=== PATIENT | male | born 1975 | race Caucasian/White ===

== ENCOUNTER 2018-09-10 17:23 | Inpatient (IN) | payer OTHER ==
[~2018-09-10] VITALS: Ht 195.6 cm; Wt 129.4 kg
[~2018-09-10 17:23] MED LIST: AGM875T PO; AMLO10TA4 PO; AMLO10TA82 PO; ASCO500T20 PO; CEPH500C PO; CLON0.5T60 PO; DCS100C PO; DOXY-13 PO; DOXY100C2 PO; ELTA CREAM; FLUO40CA12 PO; HCT25T PO; HCTZ12.5T PO; HYDR-2997 PO; HYDR-34 PO; HYDR1TAB PO; LAMO100T69 PO; MINE120C TP; MTP50T PO; MULT-358 PO; NFR150C PO; PNT40TEC PO; SULF1TAB35 PO; SULF1TAB38 PO; TEMA15CA54 PO; ZINC50TA5 PO; [UNRECOGNIZED DRUG - CODE] PO
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
--- OUTSIDE RECORDS SUMMARY | 2018-09-10 17:29 | XMS REPORT | Continuity of Care Document ---
Author Organization Unknown Address Unknown Allergies Active Description Code Type Severity Reaction Onset Reported/Identified Relationship to Patient Clinical Status Yes Bactrim Drug Allergy 04/24/2011 Yes Bactrim Drug Allergy N/A N/A 04/24/2011 Medications There is no data. Problems Date Dx Coded Attending Type Code Diagnosis Diagnosed By 12/01/2009 070.70 UNSPECIFIED VIRAL HEPATITIS C WITHOUT HEPATIC COMA 12/01/2009 401.9 UNSPECIFIED ESSENTIAL HYPERTENSION 12/01/2009 070.70 UNSPECIFIED VIRAL HEPATITIS C WITHOUT HEPATIC COMA 12/01/2009 401.9 UNSPECIFIED ESSENTIAL HYPERTENSION 12/01/2009 070.70 UNSPECIFIED VIRAL HEPATITIS C WITHOUT HEPATIC COMA 12/01/2009 401.9 UNSPECIFIED ESSENTIAL HYPERTENSION 12/01/2009 SADIA KNOX APRN 070.70 UNSPECIFIED VIRAL HEPATITIS C WITHOUT HEPATIC COMA 12/01/2009 SADIA KNOX APRN 401.9 UNSPECIFIED ESSENTIAL HYPERTENSION 02/26/2010 034.0 STREPTOCOCCAL SORE THROAT 02/26/2010 034.0 STREPTOCOCCAL SORE THROAT 02/26/2010 034.0 STREPTOCOCCAL SORE THROAT 02/26/2010 SADIA KNOX APRN 034.0 STREPTOCOCCAL SORE THROAT 03/07/2010 401.1 ESSENTIAL HYPERTENSION BENIGN 03/07/2010 845.00 SPRAIN/ STRAIN ANKLE 03/07/2010 401.1 ESSENTIAL HYPERTENSION BENIGN 03/07/2010 845.00 SPRAIN/ STRAIN ANKLE 03/07/2010 401.1 ESSENTIAL HYPERTENSION BENIGN 03/07/2010 845.00 SPRAIN/ STRAIN ANKLE 03/07/2010 SADIA KNOX APRN 401.1 ESSENTIAL HYPERTENSION BENIGN 03/07/2010 SADIA KNOX APRN 845.00 SPRAIN/STRAIN ANKLE 07/25/2010 607.84 IMPOTENCE OF ORGANIC ORIGIN 07/25/2010 607.84 IMPOTENCE OF ORGANIC ORIGIN 07/25/2010 607.84 IMPOTENCE OF ORGANIC ORIGIN 07/25/2010 SADIA KNOX APRN 607.84 IMPOTENCE OF ORGANIC ORIGIN 09/03/2010 296.90 MO MOOD DIS NOS 09/03/2010 296.90 MO MOOD DIS NOS 09/03/2010 296.90 MO MOOD DIS NOS 09/03/2010 SADIA KNOX APRN 296.90 MO MOOD DIS NOS 04/24/2011 338.29 CHRONIC PAIN 04/24/2011 799.21 feeling nervous 04/24/2011 338.29 CHRONIC PAIN 04/24/2011 799.21 feeling nervous 04/24/2011 338.29 CHRONIC PAIN 04/24/2011 799.21 feeling nervous 04/24/2011 SADIA KNOX APRN 338.29 CHRONIC PAIN 04/24/2011 SADIA KNOX APRN 799.21 feeling nervous 05/24/2011 780.52 insomnia 05/24/2011 945.04 ENCINAS OF THE LOWER LEG RIGHT 05/24/2011 780.52 insomnia 05/24/2011 945.04 ENCINAS OF THE LOWER LEG RIGHT 05/24/2011 780.52 insomnia 05/24/2011 945.04 ENCINAS OF THE LOWER LEG RIGHT 05/24/2011 SADIA KNOX APRN 780.52 insomnia 05/24/2011 SADIA KNOX APRN 945.04 ENCINAS OF THE LOWER LEG RIGHT 06/05/2011 296.30 MO DEPRESSIVE RECURRENT UNSPECIFIED 06/05/2011 300.01 AN PANIC DIS W/O AGORA 06/05/2011 304.80 SA POLYSUB DEP 06/05/2011 307.47 SI DYSSOMNIA NOS 06/05/2011 296.30 MO DEPRESSIVE RECURRENT UNSPECIFIED 06/05/2011 300.01 AN PANIC DIS W/O AGORA 06/05/2011 304.80 SA POLYSUB DEP 06/05/2011 307.47 SI DYSSOMNIA NOS 06/05/2011 296.30 MO DEPRESSIVE RECURRENT UNSPECIFIED 06/05/2011 300.01 AN PANIC DIS W/O AGORA 06/05/2011 304.80 SA POLYSUB DEP 06/05/2011 307.47 SI DYSSOMNIA NOS 06/05/2011 SADIA KNOX APRN 296.30 MO DEPRESSIVE RECURRENT UNSPECIFIED 06/05/2011 SADIA KNOX APRN 300.01 AN PANIC DIS W/O AGORA 06/05/2011 SADIA KNOX APRN 304.80 SA POLYSUB DEP 06/05/2011 SADIA KNOX APRN 307.47 SI DYSSOMNIA NOS 06/25/2011 786.2 cough 06/25/2011 786.2 cough 06/25/2011 786.2 cough 06/25/2011 SADIA KNOX APRN 786.2 cough 07/25/2011 709.9 DERMATOLOGY - NON-INFECTIOUS 07/25/2011 709.9 DERMATOLOGY - NON-INFECTIOUS 07/25/2011 709.9 DERMATOLOGY - NON-INFECTIOUS 07/25/2011 SADIA KNOX APRN 709.9 DERMATOLOGY - NON-INFECTIOUS 07/29/2011 V58.69 MEDICATION HIGH RISK 07/29/2011 V58.69 MEDICATION HIGH RISK 07/29/2011 V58.69 MEDICATION HIGH RISK 07/29/2011 SADIA KNOX APRN V58.69 MEDICATION HIGH RISK 08/29/2011 305.20 CANNABIS ABUSE 08/29/2011 305.70 AMPHETA ABUSE 08/29/2011 305.20 CANNABIS ABUSE 08/29/2011 305.70 AMPHETA ABUSE 08/29/2011 305.20 CANNABIS ABUSE 08/29/2011 305.70 AMPHETA ABUSE 08/29/2011 SADIA KNOX APRN 305.20 CANNABIS ABUSE 08/29/2011 SADIA KNOX APRN 305.70 AMPHETA ABUSE 09/10/2011 041.12 MRSA, METHICILLIN RESISTANT 09/10/2011 041.12 MRSA, METHICILLIN RESISTANT 09/10/2011 041.12 MRSA, METHICILLIN RESISTANT 09/10/2011 SADIA KNOX APRN 041.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 Results There is no data. Encounters ACCT No. Visit Date/Time Discharge Status Pt. Type Provider Facility Loc./Unit Complaint [id number] 06/09/2012 09:24:00 06/09/2012 23:59:59 CLS Outpatient SADIA KNOX APRN [id number] 05/26/2012 09:22:00 05/26/2012 23:59:59 CLS Outpatient [id number] 04/21/2012 09:44:00 04/21/2012 23:59:59 CLS Outpatient [id number] 04/14/2012 09:31:00 04/14/2012 23:59:59 CLS Outpatient
[2018-09-10] MEDS ORDERED: fentaNYL INJECTION 100 MCG/2 ML AMP IVP ONE ×2 (17:45→19:30)
[2018-09-10] MEDS ORDERED: VANCOMYCIN INJECTION 1,000 MG in NS (IVPB) 250 ML IV SCH (17:45)
[2018-09-10] MEDS ORDERED: PIPERACILLIN/TAZOBACTAM (BULK) 4.5 GM in NS (IVPB) 100 ML IV ONE (17:45)
[2018-09-10 18:01] LABS: BASOPHILS # (AUTO) 0.1 10^3/uL (0.0-0.1); BASOPHILS % (AUTO) 1 % (0-10); EOSINOPHILS # (AUTO) 0.3 10^3/uL (0.0-0.3); EOSINOPHILS % (AUTO) 3 % (0-10); HEMATOCRIT 49 % (40-54); HEMOGLOBIN 16.5 G/DL (13.3-17.7); LYMPHOCYTES # (AUTO) 1.8 X 10^3 (1.0-4.0); LYMPHOCYTES % (AUTO) 19 % (12-44); MEAN CORPUSCULAR HEMOGLOBIN 31 PG (25-34); MEAN CORPUSCULAR HGB CONC 34 G/DL (32-36); MEAN CORPUSCULAR VOLUME 92 FL (80-99); MEAN PLATELET VOLUME 10.3 FL (7.4-10.4); MONOCYTES # (AUTO) 0.9 X 10^3 (0.0-1.0); MONOCYTES % (AUTO) 9 % (0-12); NEUTROPHILS # (AUTO) 6.5 X 10^3 (1.8-7.8); NEUTROPHILS % (AUTO) 68 % (42-75); PLATELET COUNT 393 10^3/uL (130-400); WHITE BLOOD COUNT 9.6 10^3/uL (4.3-11.0)
[2018-09-10 18:10] LABS: INR 1.1 (0.8-1.4); PROTHROMBIN TIME PATIENT 14.2 SEC (12.2-14.7)
[2018-09-10 18:16] LABS: ALANINE AMINOTRANSFERASE 50 U/L (0-55); ALBUMIN 3.3 GM/DL (3.2-4.5); ALKALINE PHOSPHATASE 70 U/L (40-136); BILIRUBIN,TOTAL 0.4 MG/DL (0.1-1.0); BUN/CREATININE RATIO 14; CALCIUM 9.1 MG/DL (8.5-10.1); CARBON DIOXIDE 27 MMOL/L (21-32); CHLORIDE 100 MMOL/L (98-107); CREATININE SERUM 1.08 MG/DL (0.60-1.30); GFR ESTIMATED > 60; GLUCOSE 97 MG/DL (70-105); POTASSIUM 4.3 MMOL/L (3.6-5.0); SODIUM 137 MMOL/L (135-145); TOTAL PROTEIN 9.2 GM/DL (6.4-8.2)
[2018-09-10] MEDS ORDERED: ALLO100T PO (18:16)
[2018-09-10] MEDS ORDERED: CEPH-507 PO (18:16)
--- NOTE | 2018-09-10 18:58 | Diagnostic Imaging Report ---
PROCEDURE: US left lower extremity venous. TECHNIQUE: Multiple real-time grayscale images were obtained over the left lower extremity in various projections. Additional duplex Doppler and color Doppler images were also obtained. INDICATION: Left leg edema and pain There is normal venous flow within left common femoral and superficial femoral vein to the level of superficial/popliteal junction. There is occlusive thrombus within the popliteal vein. There is edema within the distal thigh with focal region of irregular fluid collection. This may represent extensive edema although developing abscess is not excluded. Consideration could be given to aspiration for assessment. IMPRESSION: Occlusive popliteal thrombus without other deep venous thrombosis identified. There is extensive edema and probable cellulitis in the distal thigh at the site of skin erythema. Underlying fluid collection may represent edema, phlegmon or developing abscess. Dictated by: Dictated on workstation # [id number]
--- NOTE | 2018-09-10 19:00 | NUR ---
This nurse to assume care of pt @ this time.
--- NOTE | 2018-09-10 19:09 | NUR ---
Dr. Lemos in room with pt @ this time.
[2018-09-10] MEDS ORDERED: LIDOCAINE PF 2% 5 ML (XYLOCAINE) VIAL ONE (19:17)
[2018-09-10] MEDS ORDERED: ENOXAPARIN 60 MG/0.6 ML (LOVENOX) SYR SC ONE (19:30)
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
--- OUTSIDE RECORDS SUMMARY | 2018-09-10 20:06 | XMS REPORT | Continuity of Care Document ---
[...] Status Pt. Type Provider Facility Loc./Unit Complaint [id number] 06/09/2012 09:24:00 06/09/2012 23:59:59 CLS Outpatient SADIA KNOX APRN [id number] 05/26/2012 09:22:00 05/26/2012 23:59:59 CLS Outpatient [id number] 04/21/2012 09:44:00 04/21/2012 23:59:59 CLS Outpatient [id number] 04/14/2012 09:31:00 04/14/2012 23:59:59 CLS Outpatient
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
[2018-09-10 20:43] VITALS: BP 130/84
--- NOTE | 2018-09-10 20:55 | NUR ---
VALERIO AGUILLON Tootie admitted to room 412-1, with an admitting diagnosis of cellulitis & abscess of left leg, on 09/10/18 from ED via , accompanied by STAFF.VALERIO AGUILLON introduced to surroundings, call light, bed controls, phone, TV, temperature control, lights, meal times, smoking policy, visitor policy, side rail policy, bathrooms and showers. Patient Rights given to patient in the handbook. VALERIO AGUILLON verbalizes understanding that [facility] is not responsible for the loss or damage to any personal effects or valuables that are kept in the patients possession during their hospitalization. THE PATIENT'S PLAN OF CARE WAS DISCUSSED WITH THE PATIENT HE AGREES WITH THE PLAN AND DENIES ANY QUESTIONS OR CONCERNS AT THIS TIME. VALERIO AGUILLON verbalizes understanding of Interdisciplinary Patient Education. Patient and/or family were informed about the Rapid Response Team and its purpose.
[2018-09-10] MEDS ORDERED: ONDANSETRON 4 MG/2 ML (SDV) Z0FRAN IV PRN (21:30)
--- NOTE | 2018-09-10 22:22 | NUR ---
2215-THIS RN, JULIA SETHI, & PT COUNTED HIS HYDROCODONE 5/325 TABS-TOTAL 10-MEDICATION PLACED IN LOCK UP IN MEDICATION ROOM PT ALSO HAS MONEY IN HIS ROOM-PT DENIES DESIRE TO LOCK IT UP OR ANY OTHER BELONGINGS-WITNESSED BY JULIA Crowley RN
--- NOTE | 2018-09-10 22:42 | NUR ---
SCD ORDER DC- CONTRAINDICATED-PT HAS CLOT IN THE LEFT LEG PT IS ALSO ALREADY ON LOVENOX
[2018-09-11 00:41] VITALS: BP 119/72
[2018-09-11] MEDS ORDERED: NS (IVPB) 100 ML ONE (00:42)
[2018-09-11] MEDS ORDERED: PIPERACILLIN/TAZO 4.5 GM VIAL (ZOSYN) IV ONE (00:42)
[2018-09-11] MEDS: PIPERACILLIN/TAZO 4.5 GM/NS 100 ML IV SCH ×6 (02:02→16:46)
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
[2018-09-11 04:25] VITALS: BP 140/80
[2018-09-11 06:27] LABS: BASOPHILS # (AUTO) 0.1 10^3/uL (0.0-0.1); BASOPHILS % (AUTO) 1 % (0-10); EOSINOPHILS # (AUTO) 0.3 10^3/uL (0.0-0.3); EOSINOPHILS % (AUTO) 4 % (0-10); HEMATOCRIT 45 % (40-54); HEMOGLOBIN 14.9 G/DL (13.3-17.7); LYMPHOCYTES # (AUTO) 2.1 X 10^3 (1.0-4.0); LYMPHOCYTES % (AUTO) 25 % (12-44); MEAN CORPUSCULAR HEMOGLOBIN 31 PG (25-34); MEAN CORPUSCULAR HGB CONC 33 G/DL (32-36); MEAN CORPUSCULAR VOLUME 92 FL (80-99); MEAN PLATELET VOLUME 10.7 FL (7.4-10.4); MONOCYTES # (AUTO) 0.9 X 10^3 (0.0-1.0); MONOCYTES % (AUTO) 11 % (0-12); NEUTROPHILS # (AUTO) 4.9 X 10^3 (1.8-7.8); NEUTROPHILS % (AUTO) 59 % (42-75); PLATELET COUNT 358 10^3/uL (130-400); WHITE BLOOD COUNT 8.3 10^3/uL (4.3-11.0)
[2018-09-11 06:44] LABS: ALANINE AMINOTRANSFERASE 37 U/L (0-55); ALBUMIN 2.8 GM/DL (3.2-4.5); ALKALINE PHOSPHATASE 62 U/L (40-136); BILIRUBIN,TOTAL 0.3 MG/DL (0.1-1.0); BUN/CREATININE RATIO 15; CALCIUM 8.7 MG/DL (8.5-10.1); CARBON DIOXIDE 22 MMOL/L (21-32); CHLORIDE 105 MMOL/L (98-107); CREATININE SERUM 0.93 MG/DL (0.60-1.30); GFR ESTIMATED > 60; GLUCOSE 88 MG/DL (70-105); POTASSIUM 3.5 MMOL/L (3.6-5.0); SODIUM 138 MMOL/L (135-145); TOTAL PROTEIN 7.3 GM/DL (6.4-8.2)
[2018-09-11] MEDS ORDERED: ENOXAPARIN 60 MG/0.6 ML (LOVENOX) SYR SC SCH (07:30)
[2018-09-11 08:00] VITALS: BP 134/94
[2018-09-11] MEDS: VANCOMYCIN INJECTION 2,250 MG in NS IV 500 ML 500 ML IV SCH ×3 (08:44→20:28)
[2018-09-11] MEDS: ENOXAPARIN 300 MG/3 ML (LOVENOX) MULTI-DOSE VIAL SQ SCH ×2 (08:45→20:21)
[2018-09-11] MEDS ORDERED: METO-333 PO (09:03)
[2018-09-11] MEDS ORDERED: PANT40TA3 PO (09:03)
[2018-09-11] MEDS ORDERED: HYDR-3812 PO (09:03)
[2018-09-11] MEDS ORDERED: ALLO300T2 PO (09:03)
[2018-09-11] MEDS ORDERED: FURO20TA4 PO (09:03)
[2018-09-11] MEDS ORDERED: LISI-552 PO (09:03)
--- NOTE | 2018-09-11 10:14 | Progress Note ---
Subjective Date Seen by a Provider: September 11, 2018 Time Seen by a Provider: 10:11 Subjective/Events-last exam No acute events overnight. Patient says that his pain has changed from a sharp stabbing pain to more sore and dull pain. He rates this as a 6 or 7 out of 10 in intensity. He feels like he has a fever although this is improved from yesterday. He reports a pus like fluid that continues to drain from the wound. He denies nausea, vomiting, diarrhea, shortness of breath, or chest palpitations. Focused Exam Lactate Level 09/10/18 17:50: Lactic Acid Level 1.58 Objective Exam Vital Signs Date Time Temp Pulse Resp B/P (MAP) Pulse Ox O2 Delivery O2 Flow Rate FiO2 09/11/18 08:00 99.4 99 18 134/94 (107) 94 Room Air 09/11/18 04:25 98.0 82 20 140/80 (100) 98 Room Air 09/11/18 00:41 98.4 104 20 119/72 (88) 93 Room Air 09/10/18 20:43 98.2 79 18 130/84 98 Room Air 09/10/18 20:43 98.2 79 18 130/84 (99) 98 Room Air 09/10/18 20:40 Room Air 09/10/18 20:25 96.9 84 18 129/95 (106) 98 Room Air 09/10/18 17:25 96.7 79 18 123/86 (98) 97 I & O 09/11/18 07:00 Intake Total 1580 ml Balance 1580 ml Capillary Refill : Less Than 3 SecondsLess Than 3 Seconds General Appearance: No Apparent Distress, WD/WN HEENT: PERRL/EOMI, Normal ENT Inspection Neck: Normal Inspection Respiratory: Chest Non Tender, Normal Breath Sounds, No Accessory Muscle Use, No Respiratory Distress Cardiovascular: Regular Rate, Rhythm Gastrointestinal: non tender, soft Extremity: Other (Left leg erythema, edema, draining a yellow serous appearing fluid) Neurologic/Psychiatric: Alert, Oriented x3, No Motor/Sensory Deficits, Normal Mood/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, 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 Tested Skin: Warm/Dry, Other (Multiple skin grafts throughout the body, area of erythema and induratio around at wound on medial aspect of distal left thigh.) Lymphatic: No Adenopathy Results Lab Laboratory Tests 09/10/18 17:50: White Blood Count 9.6, Red Blood Count 5.33, Hemoglobin 16.5, Hematocrit 49, Mean Corpuscular Volume 92, Mean Corpuscular Hemoglobin 31, Mean Corpuscular Hemoglobin Concent 34, Red Cell Distribution Width 14.0, Platelet Count 393, Mean Platelet Volume 10.3, Neutrophils (%) (Auto) 68, Lymphocytes (%) (Auto) 19 , Monocytes (%) (Auto) 9, Eosinophils (%) (Auto) 3, Basophils (%) (Auto) 1, Neutrophils # (Auto) 6.5, Lymphocytes # (Auto) 1.8, Monocytes # (Auto) 0.9, Eosinophils # (Auto) 0.3, Basophils # (Auto) 0.1, Prothrombin Time 14.2, INR Comment 1.1, Activated Partial Thromboplast Time 39H, Sodium Level 137, Potassium Level 4.3, Chloride Level 100, Carbon Dioxide Level 27, Anion Gap 10, Blood Urea Nitrogen 15, Creatinine 1.08, Estimat Glomerular Filtration Rate > 60 , BUN/Creatinine Ratio 14, Glucose Level 97, Lactic Acid Level 1.58, Calcium Level 9.1, Corrected Calcium 9.7, Total Bilirubin 0.4, Aspartate Amino Transf ( AST/SGOT) 70H, Alanine Aminotransferase (ALT/SGPT) 50, Alkaline Phosphatase 70, Total Protein 9.2H, Albumin 3.3 09/11/18 05:30: White Blood Count 8.3, Red Blood Count 4.88, Hemoglobin 14.9, Hematocrit 45, Mean Corpuscular Volume 92, Mean Corpuscular Hemoglobin 31, Mean Corpuscular Hemoglobin Concent 33, Red Cell Distribution Width 14.0, Platelet Count 358, Mean Platelet Volume 10.7H, Neutrophils (%) (Auto) 59, Lymphocytes (%) (Auto) 25 , Monocytes (%) (Auto) 11, Eosinophils (%) (Auto) 4, Basophils (%) (Auto) 1, Neutrophils # (Auto) 4.9, Lymphocytes # (Auto) 2.1, Monocytes # (Auto) 0.9, Eosinophils # (Auto) 0.3, Basophils # (Auto) 0.1, Sodium Level 138, Potassium Level 3.5L, Chloride Level 105, Carbon Dioxide Level 22, Anion Gap 11, Blood Urea Nitrogen 14, Creatinine 0.93, Estimat Glomerular Filtration Rate > 60, BUN/ Creatinine Ratio 15, Glucose Level 88, Calcium Level 8.7, Corrected Calcium 9.7 , Total Bilirubin 0.3, Aspartate Amino Transf (AST/SGOT) 45H, Alanine Aminotransferase (ALT/SGPT) 37, Alkaline Phosphatase 62, Total Protein 7.3, Albumin 2.8L Assessment/Plan Assessment/Plan Assessment/Plan Left leg medial above the knee cellulitis/ abscess history of skin grafts, Hep C s/p splenectomy, DVT Left popliteal s/p debridement and incision and drainage Pack and irrigate daily Lovenox for DVT Vancomycin and Zosyn for abx await cultures Pain management Continue to watch closely for increasing signs of infection May need to go to the OR for further debridement if worsens. Clinical Quality Measures DVT/VTE Risk/Contraindication: Risk Factor Score Per Nursin RFS Level Per Nursing on Admit: 4+=Very High KRISTAN LOPEZ MEDICAL STUDENT September 11, 2018 10:14 JULISSA JEFFREY DO September 11, 2018 17:05
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
--- NOTE | 2018-09-11 10:46 | NUR ---
TRIED TO SPEAK WITH THE PATIENT ABOUT HIS MEDICATIONS HOWEVER HE WOULD NOT WAKE UP TO ENGAGE IN CONVERSATION. ALL HE DID SAY WAS HE USES [facility] AND CAN NOT REMEMBER ALL OF WHAT HE TAKES. I UPDATED THE MED REC WITH WHAT HAS BEEN FILLED RECENTLY ACCORDING TO [facility]. [facility] FILLED: 09-07-18 KEFLEX 500MG Q12H X 5 DAYS 09-07-18 LISINOPRIL 20MG BID 09-07-18 HYDROCODONE 5-325MG #30 FOR 10 DAY SUPPLY 08-26-18 LASIX 20MG DAILY PRN 07-30-18 METOPROLOL TARTRATE 25MG BID #60 07-30-18 LISINOPRIL HCTZ 20-25 DAILY #30 07-30-18 ALLOPURINOL 300MG DAILY #30 07-30-18 PROTONIX 40MG DAILY #30 I HAVE LEFT TWO MESSAGES WITH [facility] OFFICE TO CLARIFY THE LISINOPRIL ORDERS. THE PATIENT HAS FILLED THE COMBO LISINOPRIL HCTZ AND THE PLAIN LISINOPRIL IN THE PAST SO IT IS UNCLEAR WHICH IS THE CURRENT ACTIVE ORDER. FOR NOW I HAVE NOT INCLUDED THE LISINOPRIL HCTZ BUT WILL UPDATE IF NEEDED AFTER THE OFFICE CALLS ME BACK TO CLARIFY. Addendum: 09/11/18 at 1337 by EMMANUELLE MANLEY [facility] NURSE FROM [facility] CALLED BACK AT THIS TIME AND VERIFIED THE PATIENTS FUROSEMIDE WAS DISCONTINUED AT HIS LAST VISIT ON 09-07-18. AT THAT TIME THEY INCREASED THE LISINOPRIL 20MG TO BID AND HE IS TO CONTINUE TAKING THE LISINOPRIL HCTZ DAILY WELL. I UPDATED THE MED REC WITH THESE CHANGES.
[2018-09-11 12:00] VITALS: BP 134/85
[2018-09-11] MEDS ORDERED: LISI1TAB10 PO (13:35)
[2018-09-11 16:40] VITALS: BP 123/78
[2018-09-11 19:35] VITALS: BP 123/72
--- NOTE | 2018-09-11 20:19 | NUR ---
This RN at bedside to flush pt's IV after Zosyn administration is finished. Pt grimaced et reported that IV site to right wrist was sore. Moderate swelling to right wrist when compared to contralateral wrist. This RN informed pt that IV was most likely infiltrated et pt would need another IV in order to receive any additional IV medications. Pt refused to allow this RN to start additional IV at this time, after education by RN of importance of IV site to receive medications, especially analgesia et antibiotics. Will continue to monitor.
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
--- NOTE | 2018-09-11 20:34 | NUR ---
Pt extremely obstinate et defiant, refusing to allow this RN to change dressing to left leg. Gauze dressing is soaked through with moderate pink drainage noted. This RN requested to change dressing to pt. Pt rolled onto back et said "you're not asking me to change it, you're telling me you're going to. Just change it!" This RN explained to pt that approval was being granted to change dressing due to pt refusing care up to that point. Pt continued to argue with RN, stating that he just wanted to be left alone. Will continue to monitor.
--- NOTE | 2018-09-11 21:12 | NUR ---
Dressing continues to saturate through itself et part of pt's bed linens. Pt continuing to refuse to allow RN to change dressing at this time. Visitors at bedside. Will continue to monitor.
[2018-09-11] MEDS: HYDROcodone/APAP 5 MG/325 MG (LORTAB) TAB PO PRN (22:00)
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
[2018-09-12 00:10] VITALS: BP 132/70
[2018-09-12] MEDS: PIPERACILLIN/TAZO 4.5 GM/NS 100 ML IV SCH ×6 (00:30→15:31)
[2018-09-12 04:00] VITALS: BP 136/86
[2018-09-12] MEDS ORDERED: TROUGH ORDER-PHARMACY XX NR (06:00)
[2018-09-12 08:00] VITALS: BP 150/90
[2018-09-12] MEDS: HYDROcodone/APAP 5 MG/325 MG (LORTAB) TAB PO PRN (08:55)
[2018-09-12] MEDS: VANCOMYCIN INJECTION 2,250 MG in NS IV 500 ML 500 ML IV SCH ×2 (09:17→20:41)
[2018-09-12] MEDS: ENOXAPARIN 300 MG/3 ML (LOVENOX) MULTI-DOSE VIAL SQ SCH ×2 (09:17→20:51)
[2018-09-12] MEDS: fentaNYL INJECTION 100 MCG/2 ML AMP IV PRN ×3 (09:18→20:58)
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
--- NOTE | 2018-09-12 10:53 | Progress Note (SOAP) ---
Subjective Date Seen by a Provider: September 12, 2018 Time Seen by a Provider: 09:40 Subjective/Events-last exam Patient seen with Dr. Wolfe. Patient reports still having drainage from left medial leg wound. Still reports pain. Tolerating diet. No fever/chills. Focused Exam Lactate Level 09/10/18 17:50: Lactic Acid Level 1.58 Objective Exam Vital Signs Date Time Temp Pulse Resp B/P (MAP) Pulse Ox O2 Delivery O2 Flow Rate FiO2 09/12/18 08:00 99.0 90 20 150/90 (110) 95 Room Air 09/12/18 08:00 Room Air 09/12/18 04:00 97.9 95 20 136/86 (103) 95 Room Air 09/12/18 00:10 99.0 99 20 132/70 (90) 94 Room Air 09/11/18 20:00 Room Air 09/11/18 19:35 98.6 98 18 123/72 (89) 95 Room Air 09/11/18 16:40 97.1 94 20 123/78 (93) 96 Room Air 09/11/18 12:00 98.3 90 18 134/85 (101) 93 Room Air I & O 09/12/18 07:00 Intake Total 2760 ml Balance 2760 ml Capillary Refill : Less Than 3 SecondsLess Than 3 Seconds General Appearance: No Apparent Distress, WD/WN Neck: Full Range of Motion, Normal Inspection, Non Tender, Supple Respiratory: Lungs Clear, No Accessory Muscle Use, No Respiratory Distress Cardiovascular: Regular Rate, Rhythm, No Edema Gastrointestinal: normal bowel sounds, non tender, soft Extremity: Normal Capillary Refill, No Pedal Edema Neurologic/Psychiatric: Alert, Oriented x3 Skin: Other (Multiple skin graft site throughout body. Left medical leg wound has yellow serous drainage. There is some mild erythema surrounding wound. Tender to palpation.) Results Lab Microbiology 09/10/18 Blood Culture - Preliminary, Resulted No growth 09/10/18 Gram Stain - Final, Resulted 09/10/18 Wound Culture - Preliminary, Resulted Staphylococcus aureus Assessment/Plan Assessment/Plan Assess & Plan/Chief Complaint A 42 year old male with Left leg medial above the knee cellulitis/ abscess history of skin grafts, Hep C s/p splenectomy, DVT Left popliteal s/p debridement and incision and drainage Continue with IV abx, pain and nausea meds. Pack and irrigate daily Lovenox for DVT Continue to monitor for increasing signs of infection May need to go to the OR for further debridement if worsens. Clinical Quality Measures DVT/VTE Risk/Contraindication: Risk Factor Score Per Nursin RFS Level Per Nursing on Admit: 4+=Very High [address] SPRINK[employer]ER September 12, 2018 10:53
[2018-09-12] MEDS ORDERED: HYDROcodone/APAP 5 MG/325 MG (LORTAB) TAB PO PRN (11:45)
--- NOTE | 2018-09-12 13:30 | NUR ---
Patient off floor at this time, with family for a walk.
--- NOTE | 2018-09-12 14:14 | NUR ---
Patient back on floor and in room at this time.
[2018-09-12 16:59] VITALS: BP 177/94
[2018-09-12] MEDS: NS IV 500 ML 500 ML IV SCH (17:05)
[2018-09-12] MEDS: meTOprolol TARTRATE 25 MG (LOPRESSOR) TABLET PO SCH (20:51)
[2018-09-12] MEDS: lisINopril 20 MG (PRINIVIL) TABLET PO SCH (20:51)
[2018-09-12 23:45] VITALS: BP 160/80
[2018-09-13] MEDS: PIPERACILLIN/TAZO 4.5 GM/NS 100 ML IV SCH ×6 (00:43→16:15)
[2018-09-13] MEDS: VANCOMYCIN INJECTION 2,250 MG in NS IV 500 ML 500 ML IV SCH ×2 (06:11→20:34)
[2018-09-13] MEDS: fentaNYL INJECTION 100 MCG/2 ML AMP IV PRN ×4 (06:16→23:42)
[2018-09-13 08:00] VITALS: BP 141/82
[2018-09-13] MEDS: NS IV 500 ML 500 ML IV SCH (08:52)
[2018-09-13] MEDS: ENOXAPARIN 300 MG/3 ML (LOVENOX) MULTI-DOSE VIAL SQ SCH ×2 (08:52→20:34)
[2018-09-13] MEDS: meTOprolol TARTRATE 25 MG (LOPRESSOR) TABLET PO SCH ×2 (08:53→20:34)
[2018-09-13] MEDS: ALLOPURINOL 300 MG (ZYLOPRIM) TAB PO SCH (08:53)
[2018-09-13] MEDS: lisINopril 20 MG (PRINIVIL) TABLET PO SCH ×3 (08:53→20:34)
[2018-09-13] MEDS: PANTOPRAZOLE 40 MG (PROTONIX) TAB PO SCH (08:53)
[2018-09-13] MEDS: HYDROCHLOROTHIAZIDE 25 MG (HCTZ) TAB PO SCH (08:53)
--- NOTE | 2018-09-13 09:49 | Progress Note (SOAP) ---
Subjective Date Seen by a Provider: September 13, 2018 Time Seen by a Provider: 09:20 Subjective/Events-last exam Patient seen with Dr. Wolfe. Patient lying in bed asleep. Denies any issues except for left medical leg pain. Tolerating diet. Focused Exam Lactate Level 09/10/18 17:50: Lactic Acid Level 1.58 Objective Exam Vital Signs Date Time Temp Pulse Resp B/P (MAP) Pulse Ox O2 Delivery O2 Flow Rate FiO2 09/13/18 08:00 96.9 79 20 141/82 (101) 94 Room Air 09/12/18 23:45 98.7 87 20 160/80 (106) 97 Room Air 09/12/18 20:00 Room Air 09/12/18 16:59 98.9 87 20 177/94 (121) 96 Room Air I & O 09/13/18 06:59 Intake Total 5492.5 ml Balance 5492.5 ml Capillary Refill : Less Than 3 SecondsLess Than 3 Seconds General Appearance: No Apparent Distress, WD/WN Neck: Full Range of Motion, Normal Inspection, Non Tender, Supple Respiratory: Lungs Clear, No Accessory Muscle Use, No Respiratory Distress Cardiovascular: Regular Rate, Rhythm, No Edema Gastrointestinal: normal bowel sounds, non tender, soft Extremity: Normal Capillary Refill, Normal Range of Motion, Other (Left medical leg wound with surrounding erythema. Serous drainage noted from wound. Painful to palpation.) Neurologic/Psychiatric: Alert, Oriented x3 Skin: Normal Color, Warm/Dry, Other (Multiple skin grafts over body and extremities.) Results Lab Microbiology 09/10/18 Blood Culture - Preliminary, Resulted No growth 09/10/18 Gram Stain - Final, Resulted 09/10/18 Wound Culture - Preliminary, Resulted Staphylococcus aureus Assessment/Plan Assessment/Plan Assess & Plan/Chief Complaint A 42 year old male with Left leg medial above the knee cellulitis/ abscess history of skin grafts, Hep C s/p splenectomy, DVT Left popliteal s/p debridement and incision and drainage Continue with IV abx, pain and nausea meds. Pack and irrigate daily Lovenox for DVT Continue to monitor for increasing signs of infection May need to go to the OR for further debridement if worsens. Clinical Quality Measures DVT/VTE Risk/Contraindication: Risk Factor Score Per Nursin RFS Level Per Nursing on Admit: 4+=Very High HUMBERTO LEVINE [employer] September 13, 2018 09:49
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
[2018-09-13 15:47] VITALS: BP 132/71
[2018-09-14] VITALS: BP 160/94
--- NOTE | 2018-09-14 | NUR ---
Pt's family at bedside. This RN at bedside to check status of pt's antibiotics. This RN approached IV pump to see that it had been altered et silenced by female visitor sitting closest to it. This RN provided education to pt et family member that only RN were allowed to touch or program pumps. Pt's IV to left hand attempted to be flushed; pt c/o of pain et minimal swelling to hand et wrist area. Pt had KVO NS at 30 ml/hr running when pump was programmed correctly. IV site lost. This RN attempted 2x to restart IV to pt's right forearm without success. Roll Scale Man Shayna contacted to restart IV. Will continue to monitor.
[2018-09-14] MEDS: NS IV 500 ML 500 ML IV SCH ×2 (01:17→08:04)
[2018-09-14] MEDS: PIPERACILLIN/TAZO 4.5 GM/NS 100 ML IV SCH ×4 (01:18→08:04)
[2018-09-14] MEDS: fentaNYL INJECTION 100 MCG/2 ML AMP IV PRN ×2 (02:50→08:11)
[2018-09-14] MEDS ORDERED: TROUGH ORDER-PHARMACY XX NR (06:00)
[2018-09-14 06:32] LABS: BUN/CREATININE RATIO 11; CALCIUM 8.4 MG/DL (8.5-10.1); CARBON DIOXIDE 18 MMOL/L (21-32); CHLORIDE 109 MMOL/L (98-107); CREATININE SERUM 1.07 MG/DL (0.60-1.30); GFR ESTIMATED > 60; GLUCOSE 168 MG/DL (70-105); POTASSIUM 4.1 MMOL/L (3.6-5.0); SODIUM 140 MMOL/L (135-145)
[2018-09-14 06:48] LABS: VANCOMYCIN,TROUGH 25.5 UG/ML (10.0-20.0)
[2018-09-14] MEDS: VANCOMYCIN INJECTION 2,250 MG in NS IV 500 ML 500 ML IV SCH (06:57)
[2018-09-14 07:58] VITALS: BP 160/84
[2018-09-14] MEDS: HYDROCHLOROTHIAZIDE 25 MG (HCTZ) TAB PO SCH (08:10)
[2018-09-14] MEDS: ALLOPURINOL 300 MG (ZYLOPRIM) TAB PO SCH (08:10)
[2018-09-14] MEDS: ENOXAPARIN 300 MG/3 ML (LOVENOX) MULTI-DOSE VIAL SQ SCH (08:10)
[2018-09-14] MEDS: lisINopril 20 MG (PRINIVIL) TABLET PO SCH ×2 (08:10→09:20)
[2018-09-14] MEDS: meTOprolol TARTRATE 25 MG (LOPRESSOR) TABLET PO SCH (08:10)
[2018-09-14] MEDS: PANTOPRAZOLE 40 MG (PROTONIX) TAB PO SCH (08:10)
--- NOTE | 2018-09-14 09:29 | Progress Note ---
Subjective Date Seen by a Provider: September 14, 2018 Time Seen by a Provider: 08:15 Subjective/Events-last exam Patient seen and examined at bedside this morning with no acute events overnight. Only complaint at this time is that he has had to have his peripheral IV changed a couple times. He still endorses pain at the wound site, however it has improved each day since admission. He denies subjective fever, GONZALES , CP, SOB, abd pain, N/V/D, and chills. Objective Exam Vital Signs Date Time Temp Pulse Resp B/P (MAP) Pulse Ox O2 Delivery O2 Flow Rate FiO2 09/14/18 08:00 94 Room Air 09/14/18 07:58 98.9 84 20 160/84 (109) 92 Room Air 09/14/18 00:00 98.6 86 20 160/94 (116) 97 Room Air 09/13/18 20:00 Room Air 09/13/18 15:47 98.4 71 24 132/71 (91) 97 Room Air I & O 09/14/18 07:00 Intake Total 2902 ml Balance 2902 ml Capillary Refill : Less Than 3 SecondsLess Than 3 Seconds General Appearance: No Apparent Distress, WD/WN HEENT: PERRL/EOMI, Normal ENT Inspection Neck: Full Range of Motion, Normal Inspection, Non Tender, Supple Respiratory: Lungs Clear, No Accessory Muscle Use, No Respiratory Distress Cardiovascular: Regular Rate, Rhythm, No Edema Gastrointestinal: normal bowel sounds, non tender, soft Extremity: Normal Capillary Refill, No Pedal Edema Neurologic/Psychiatric: Alert, Oriented x3 Skin: Other (Multiple skin graft site throughout body. Left lower leg wound has yellow serous drainage. There is some mild erythema surrounding wound. Tender to palpation. ) Lymphatic: No Adenopathy Results Lab Laboratory Tests 09/14/18 06:00: Sodium Level 140, Potassium Level 4.1, Chloride Level 109H, Carbon Dioxide Level 18L, Anion Gap 13, Blood Urea Nitrogen 12, Creatinine 1.07, Estimat Glomerular Filtration Rate > 60, BUN/Creatinine Ratio 11, Glucose Level 168H, Calcium Level 8.4L, Vancomycin Level Trough 25.5*H Microbiology 09/10/18 Blood Culture - Preliminary, Resulted No growth 09/10/18 Gram Stain - Final, Complete 09/10/18 Wound Culture - Final, Complete Staphylococcus aureus Assessment/Plan Assessment/Plan Assessment/Plan Left Lower Extremity Cellulitis/Abscess S/P Debridement and I&D Hx of Skin grafts, Hep C S/P Splenectomy, DVT Left Popliteal - Previous packing and dressing changed today, and wound was irrigated - Wound Culture positive for S. Aureus that is sensitive to TMP-SMX, Vancomycin, Rifampin, Minocycline and Linezolid; Patient is allergic to Sulfa, would continue treatment with Vancomycin - Convert to oral antibiotics - Continue with Pain and Nausea Meds - Continue Lovenox for DVT - Daily irrigation and packing with Iodaform gauze. Clinical Quality Measures DVT/VTE Risk/Contraindication: Risk Factor Score Per Nursin RFS Level Per Nursing on Admit: 4+=Very High Other: see interventions for details. Supervisory-Addendum Brief Supervisory Addendum Participated in pt care: history, MDM, physical Personally performed: exam, history, MDM, supervision of care Care discussed with: other (seen and examined with Dr. Mikaela Hernandez) Results interpretation: agree with documentation EDEL HERNANDEZ RESIDENT September 14, 2018 09:29 JULISSA JEFFREY DO September 14, 2018 16:51
[2018-09-14] MEDS ORDERED: APIX5TAB PO (11:25)
--- NOTE | 2018-09-14 11:31 | Discharge Inst-Simple/Standard ---
Discharge Inst-Standard Patient Instructions/Follow Up Plan of Care/Instructions/FU: Change dressings daily as while in hospital. You will need iodoform gauze, 4 x 4's, and nonallergenic tape. Arrangements have been made for Zyvox, which is an antibiotic for MRSA, and Eliquis which is a blood thinner. The Zyvox is a 10 day prescription. A decision will be made next week when you have your [facility] appointment as to that completing your treatment or requiring an additional length of treatment. The Eliquis will need to be used for 3-6 months and your provider will need to determine that length of treatment. Activity as Tolerated: Yes Goal: Resolution of abscess. Discharge Diet: No Restrictions Return to The Hospital For: Increasing redness and upward streaking about the open wound. Planned Outpatient Orders/Ref. Pneu Vac Indicated: Yes ALEX FARNSWORTH MD September 14, 2018 11:31
[2018-09-14] MEDS ORDERED: LINE600T5 PO (11:35)
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
--- NOTE | 2018-09-14 11:44 | NUR ---
Provided eliquis education to the patient, focused on how to take based on DVT dosing (2 bid x 7 days, then 1 bid) and adverse events including bleeding. provided the eliquis savings card to nurse (Adilene) to place in discharge paperwork. also set up linezolid 600mg po bid x 10 days with 340b savings plan, estimated michael is $25.20. per patient he can afford that.
[2018-09-14 12:50] VITALS: BP 160/84
--- NOTE | 2018-09-14 12:50 | NUR ---
Discharge instructions given to patient at this time, patient verbalized understanding. IV removed, catheter tip intact. PCT assisted patient to main entrance to vehicle.
[2018-09-15] MEDS ORDERED: TROUGH ORDER-PHARMACY XX NR (08:00)
[2018-09-15] MEDS ORDERED: VANCOMYCIN 1,750 MG/NS 500 ML IVPB IV SCH ×2 (09:00)
== END 2018-09-14 12:50 | disposition home or self-care (01) | DRG 603 ==
LOC: EDUNIT# 17:23 → ER 17:24 → 4TH 18:30
PROVIDERS: ADMIT Internal Medicine; ATTEND Internal Medicine
PROC: 0HBLXZZ Excision of Left Lower Leg Skin, External Approach (ICD-10-PCS; principal; 2018-09-10)
DX: L03.116 Cellulitis of left lower limb (principal); I82.432 Acute embolism and thrombosis of left popliteal vein; S70.312D Abrasion, left thigh, subsequent encounter; F17.210 Nicotine dependence, cigarettes, uncomplicated; I10 Essential (primary) hypertension; B19.20 Unspecified viral hepatitis C without hepatic coma; F15.10 Other stimulant abuse, uncomplicated; B95.62 Methicillin resistant Staphylococcus aureus infection as the cause of diseases classified elsewhere; V29.9XXD Motorcycle rider (driver) (passenger) injured in unspecified traffic accident, subsequent encounter; Z94.5 Skin transplant status
CPT/HCPCS: 36415; 80048; 80053; 80202; 83605; 85025; 85610; 85730; 87040; 87070; 87077; 87186; 87205; 96365; 96367; 96372; 96375; 96376

== ENCOUNTER 2020-01-11 06:45 | Emergency (ER) | payer OTHER ==
[~2020-01-11] VITALS: Ht 193 cm; Wt 130.0 kg
[~2020-01-11 06:45] MED LIST changes: +ACHD5005 PO; +ALLO100T PO; +ALLO300T2 PO; +APIX5TAB PO; +CEPH-507 PO; +FURO20TA4 PO; +LINE600T12 PO; +LISI-552 PO; +LISI1TAB26 PO; +METO-333 PO; +PANT40TA3 PO
[2020-01-11] MEDS ORDERED: ASPIRIN 81 MG CHEW (CHILDREN'S ASA) PO ONE (07:15)
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
[2020-01-11] MEDS: NITROGLYCERIN 0.4 MG SL TABS BTL 25'S SL PRN ×2 (07:35→08:41)
[2020-01-11 07:38] LABS: BASOPHILS # (AUTO) 0.2 10^3/uL (0.0-0.1); BASOPHILS % (AUTO) 2 % (0-10); EOSINOPHILS # (AUTO) 0.3 10^3/uL (0.0-0.3); EOSINOPHILS % (AUTO) 3 % (0-10); HEMATOCRIT 44 % (40-54); HEMOGLOBIN 15.5 G/DL (13.3-17.7); LYMPHOCYTES # (AUTO) 2.8 X 10^3 (1.0-4.0); LYMPHOCYTES % (AUTO) 32 % (12-44); MEAN CORPUSCULAR HEMOGLOBIN 31 PG (25-34); MEAN CORPUSCULAR HGB CONC 35 G/DL (32-36); MEAN CORPUSCULAR VOLUME 88 FL (80-99); MEAN PLATELET VOLUME 10.7 FL (7.4-10.4); MONOCYTES # (AUTO) 1.2 X 10^3 (0.0-1.0); MONOCYTES % (AUTO) 14 % (0-12); NEUTROPHILS # (AUTO) 4.4 X 10^3 (1.8-7.8); NEUTROPHILS % (AUTO) 49 % (42-75); PLATELET COUNT 358 10^3/uL (130-400); WHITE BLOOD COUNT 8.8 10^3/uL (4.3-11.0)
[2020-01-11 07:50] LABS: ALBUMIN 3.6 GM/DL (3.2-4.5); CHLORIDE 107 MMOL/L (98-107); POTASSIUM 3.5 MMOL/L (3.6-5.0); SODIUM 139 MMOL/L (135-145)
[2020-01-11 07:51] LABS: CALCIUM 8.4 MG/DL (8.5-10.1)
[2020-01-11 07:52] LABS: GLUCOSE 94 MG/DL (70-105); TOTAL PROTEIN 7.6 GM/DL (6.4-8.2)
[2020-01-11 07:53] LABS: CARBON DIOXIDE 24 MMOL/L (21-32)
[2020-01-11 07:54] LABS: BILIRUBIN,TOTAL 0.9 MG/DL (0.1-1.0)
[2020-01-11 07:56] LABS: ALKALINE PHOSPHATASE 56 U/L (40-136); GFR ESTIMATED > 60
[2020-01-11 07:57] LABS: BUN/CREATININE RATIO 17
[2020-01-11 07:59] LABS: ALANINE AMINOTRANSFERASE 26 U/L (0-55); MAGNESIUM 1.9 MG/DL (1.6-2.4)
[2020-01-11 08:00] LABS: LIPASE 28 U/L (8-78)
[2020-01-11 08:01] LABS: INR 1.1 (0.8-1.4); PROTHROMBIN TIME PATIENT 15.1 SEC (12.2-14.7)
--- NOTE | 2020-01-11 08:04 | Diagnostic Imaging Report ---
INDICATION: Chest pain COMPARISON: 03/13/11 FINDINGS: Single view of the chest demonstrates stable cardiac enlargement. The lungs are clear. There is no pneumothorax, effusion or focal infiltrate. Osseous structures are stable. IMPRESSION: Stable cardiac enlargement without pulmonary edema or acute infiltrate. Dictated by: Dictated on workstation # [id number]
[2020-01-11] MEDS ORDERED: NS IV 1000 ML 1,000 ML IV SCH (09:04)
[2020-01-11] MEDS ORDERED: NS 100 ML (IVPB) BAG IV ONE (09:15)
[2020-01-11] MEDS ORDERED: HOLD METFORMIN - RECEIVED CONTRAST 20 ML VIAL IV SCH (09:15)
[2020-01-11] MEDS ORDERED: ACETAMINOPHEN 500 MG TAB (TYLENOL) PO ONE (09:15)
[2020-01-11] MEDS ORDERED: IOHEXOL 350 MG/ML 100 ML (OMNIPAQUE 350) VIAL IV ONE (09:15)
--- NOTE | 2020-01-11 09:55 | Diagnostic Imaging Report ---
PROCEDURE: CT angiography of the chest with contrast. TECHNIQUE: Multiple contiguous axial images were obtained through the chest after uneventful bolus administration of intravenous contrast. 3D reconstructed CTA MIP acquisitions were also performed. Auto Exposure Controls were utilized during the CT exam to meet ALARA standards for radiation dose reduction. INDICATION: There is no acute pulmonary embolus in the 1st subsegmental division of the pulmonary arteries. The thoracic aorta is normal in course and caliber. The heart size is within normal limits. There is no large pericardial effusion. Several mildly prominent right hilar lymph nodes are identified. The largest of these measures 2.2 x 1.2 cm. No abnormal mediastinal or axillary adenopathy is seen. Evaluation of the lung morgan is mildly degraded by motion artifact but there is no focal consolidation, large effusion, or pneumothorax on either side. A juxtapleural micronodule is identified in the superior margins of the lateral segment of the right middle lobe adjacent to the minor fissure. It measures 4 to 5 mm in diameter (image 77, series 3). A 9 x 4 mm micronodule is also noted associated with the minor fissure on the left (image 73, series 3). The osseous structures show no acute abnormalities. No lytic or blastic bony lesions are seen. The included portions of the upper abdomen show multiple large gallstones. The patient is status post previous splenectomy. Several small splenules are noted in the left upper abdominal quadrant. IMPRESSION: 1. No acute pulmonary embolus in the 1st subsegmental division of the pulmonary arteries. 2. Several slightly prominent right hilar lymph nodes of uncertain significance or etiology. 3. Bilateral pulmonary micronodules. A 6 month followup is recommended to ensure stability. 4. Cholelithiasis. Dictated by: Dictated on workstation # [id number]
[2020-01-11 09:59] LABS: AMPHETAMINE SCREEN, URINE NEGATIVE (NEGATIVE); BARBITURATE SCREEN URINE NEGATIVE (NEGATIVE); BENZODIAZEPINES SCREEN URINE NEGATIVE (NEGATIVE); CANNABINOID SCREEN, URINE NEGATIVE (NEGATIVE); COCAINE SCREEN URINE NEGATIVE (NEGATIVE); METHADONE STAT NEGATIVE (NEGATIVE); METHAMPHETAMINE SCREEN URINE S NEGATIVE (NEGATIVE); OPIATE SCREEN URINE NEGATIVE (NEGATIVE); OXYCODONE STAT NEGATIVE (NEGATIVE); PROPOXYPHENE STAT NEGATIVE (NEGATIVE); TRICYCLIC ANTIDEPRESSANTS SCRE NEGATIVE (NEGATIVE)
[2020-01-11] MEDS ORDERED: LISI10TA2 PO (10:44)
[2020-01-11] MEDS ORDERED: CALC500T64 PO (10:44)
[2020-01-11] MEDS ORDERED: ACET-2267 PO (10:44)
[2020-01-11] MEDS ORDERED: ASPI-999 PO (10:44)
[2020-01-11 10:52] VITALS: BP 145/93
== END 2020-01-11 10:53 | disposition home or self-care (01) ==
LOC: EDUNIT# 06:45 → ER 06:47
DX: R07.9 Chest pain, unspecified (principal); R91.8 Other nonspecific abnormal finding of lung field; I10 Essential (primary) hypertension; F17.210 Nicotine dependence, cigarettes, uncomplicated; Z80.43 Family history of malignant neoplasm of testis; Z88.2 Allergy status to sulfonamides; Z79.82 Long term (current) use of aspirin; Z79.01 Long term (current) use of anticoagulants
CPT/HCPCS: 36415; 71045; 71275; 80053; 80306; 83690; 83735; 83874; 83880; 84484; 85025; 85379; 85610; 85730; 93005; 93041

== ENCOUNTER 2020-02-20 07:17 | Observation (INO) | payer OTHER ==
[~2020-02-20] VITALS: Ht 195.6 cm; Wt 132.0 kg
[~2020-02-20 07:17] MED LIST changes: +ACET-2267 PO; +ASPI-999 PO; +CALC500T64 PO; +LISI10TA2 PO; -PANT40TA3 PO; +PANT40TA52 PO
[2020-02-20] MEDS ORDERED: LACTATED RINGERS 1,000 ML IV ONE (07:44)
[2020-02-20] MEDS ORDERED: LIDOCAINE 2% VISCOUS 15 ML UDC PO ONE (07:45)
[2020-02-20] MEDS ORDERED: PANTOPRAZOLE 40 MG (PROTONIX) VIAL IV ONE (07:45)
[2020-02-20] MEDS ORDERED: ANTACID SUSP 30 ML UDC (MYLANTA) PO ONE (07:45)
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
[2020-02-20 08:08] LABS: BASOPHILS # (AUTO) 0.2 10^3/uL (0.0-0.1); BASOPHILS % (AUTO) 1 % (0-10); EOSINOPHILS # (AUTO) 0.3 10^3/uL (0.0-0.3); EOSINOPHILS % (AUTO) 3 % (0-10); HEMATOCRIT 46 % (40-54); HEMOGLOBIN 16.3 g/dL (13.3-17.7); LYMPHOCYTES # (AUTO) 3.2 10^3/uL (1.0-4.0); LYMPHOCYTES % (AUTO) 27 % (12-44); MEAN CORPUSCULAR HEMOGLOBIN 31 pg (25-34); MEAN CORPUSCULAR HGB CONC 36 g/dL (32-36); MEAN CORPUSCULAR VOLUME 88 fL (80-99); MEAN PLATELET VOLUME 11.9 fL (9.0-12.2); MONOCYTES # (AUTO) 1.5 10^3/uL (0.0-1.0); MONOCYTES % (AUTO) 12 % (0-12); NEUTROPHILS % (AUTO) 57 % (42-75); PLATELET COUNT 251 10^3/uL (130-400); WHITE BLOOD COUNT 12.2 10^3/uL (4.3-11.0)
[2020-02-20 08:10] LABS: ALBUMIN 3.9 GM/DL (3.2-4.5); CHLORIDE 106 MMOL/L (98-107)
[2020-02-20 08:11] LABS: POTASSIUM 3.5 MMOL/L (3.6-5.0); SODIUM 140 MMOL/L (135-145)
[2020-02-20 08:12] LABS: CALCIUM 8.5 MG/DL (8.5-10.1)
[2020-02-20 08:13] LABS: GLUCOSE 102 MG/DL (70-105); TOTAL PROTEIN 7.6 GM/DL (6.4-8.2)
[2020-02-20 08:14] LABS: CARBON DIOXIDE 22 MMOL/L (21-32)
[2020-02-20 08:15] LABS: BILIRUBIN,TOTAL 1.1 MG/DL (0.1-1.0)
[2020-02-20] MEDS ORDERED: IOHEXOL 350 MG/ML 100 ML (OMNIPAQUE 350) VIAL IV ONE (08:15)
[2020-02-20] MEDS ORDERED: NS 100 ML (IVPB) BAG IV ONE (08:15)
[2020-02-20 08:16] LABS: ALKALINE PHOSPHATASE 62 U/L (40-136)
[2020-02-20 08:17] LABS: CREATININE SERUM 0.88 MG/DL (0.60-1.30); GFR ESTIMATED > 60
[2020-02-20 08:18] LABS: BUN/CREATININE RATIO 14
[2020-02-20 08:19] LABS: ALANINE AMINOTRANSFERASE 32 U/L (0-55)
[2020-02-20 08:20] LABS: LIPASE 83 U/L (8-78)
[2020-02-20] MEDS ORDERED: fentaNYL INJECTION 100 MCG/2 ML AMP IVP ONE (08:30)
[2020-02-20 09:11] LABS: BILIRUBIN,URINE NEGATIVE (NEGATIVE); CLARITY,URINE CLEAR; COLOR,URINE YELLOW; GLUCOSE, URINE (UA) NEGATIVE (NEGATIVE); KETONES,URINE NEGATIVE (NEGATIVE); LEUKOCYTE ESTERASE ,URINE NEGATIVE (NEGATIVE); NITRITE,URINE NEGATIVE (NEGATIVE); PH,URINE 6.5 (5-9); PROTEIN,URINE NEGATIVE (NEGATIVE)
--- NOTE | 2020-02-20 09:14 | Diagnostic Imaging Report ---
PROCEDURE: CT abdomen and pelvis with contrast. TECHNIQUE: Multiple contiguous axial images were obtained through the abdomen and pelvis after administration of intravenous contrast. Auto Exposure Controls were utilized during the CT exam to meet ALARA standards for radiation dose reduction. All CT scans use one or more of the following dose optimizing techniques: automated exposure control, MA and/or KvP adjustment based on patient size and exam type or iterative reconstruction. INDICATION: Lower abdominal pain starting yesterday. COMPARISON: None. DISCUSSION: The lung bases are unremarkable. Normal heart size. No pleural or pericardial fluid. Cholelithiasis is noted with no secondary inflammatory changes present. The liver, stomach, and adrenal glands are unremarkable. The spleen is not visualized, likely surgically absent. Small splenules are noted within the left upper quadrant, incidental. Mild inflammatory changes noted along the pancreatic head which could be seen with early pancreatitis. Ventral hernia containing fat above the umbilicus. No bowel involvement. The bladder is decompressed. The prostate is normal in size. No diverticular disease. No obstruction, pneumatosis, pneumoperitoneum. No ascites or pathologically enlarged lymph nodes identified. The appendix is not definitively visualized though no secondary inflammatory changes are identified. No acute osseous abnormality identified. Advanced degenerative disc disease noted at L5-S1. Shotty-appearing inguinal adenopathy is present. IMPRESSION: 1. Mild inflammatory changes along the pancreatic tail, possible acute pancreatitis. 2. Cholelithiasis. 3. Fat-containing ventral hernia. Dictated by: Dictated on workstation # [id number]
[2020-02-20 09:18] LABS: BACTERIA,URINE TRACE /HPF
[2020-02-20] MEDS ORDERED: lisINopril 20 MG (PRINIVIL) TABLET PO ONE (09:30)
[2020-02-20 10:39] VITALS: BP 170/118
--- NOTE | 2020-02-20 11:13 | HISTORY AND PHYSICAL ---
DATE OF SERVICE: 02/20/2020 HISTORY OF PRESENT ILLNESS: The patient is a 44-year-old male, who is not incarcerated. So, patient presents to the Emergency Department. He reports crampy abdominal pain starting yesterday, which started in the epigastric region and then also his right upper abdominal quadrant. He had a previous visit and was found to have a cholelithiasis. He does not report any previous history of gastroesophageal reflux disease nor peptic ulcer disease. He reports that the pain began after eating food. A CT scan was performed, which did show cholelithiasis as well as possible mild pancreatitis. PAST MEDICAL HISTORY: Hypertension, hepatitis C. PAST SURGICAL HISTORY: Splenectomy and skin grafting. ALLERGIES: SULFA. MEDICATIONS: Allopurinol 300 mg daily, apixaban 5 mg b.i.d., aspirin 81 mg daily, lisinopril 20 mg daily, metoprolol 25 mg b.i.d., Protonix 40 mg daily. SOCIAL HISTORY: Positive smoke. Social alcohol. FAMILY HISTORY: Noncontributory. VITAL SIGNS: Temperature 35.9, pulse 77, respirations 18, blood pressure 201/130, pulse ox 95% on room air. REVIEW OF SYSTEMS: Well-nourished male in no acute distress. He is not experiencing any shortness of breath or difficulty breathing. No chest pain, palpitations, diaphoresis. Intermittent episodes of nausea, no vomiting with pain in the right upper abdominal quadrant. History of constipation. Did have two bowel movements yesterday. No red blood per rectum, no dark tarry stools. No fever, chills, no recent inadvertent weight loss. All other review of systems negative. PHYSICAL EXAMINATION: CHEST: Clear. Good breath sounds bilaterally. HEART: Regular, no murmurs. EXTREMITIES: No lower extremity edema, negative Homans sign. HEENT: No scleral icterus. NECK: No cervical lymphadenopathy. ABDOMEN: Soft, nondistended. There is pain in the right upper abdominal quadrant with positive Rhoades sign. No rebound. No hernias. SKIN: Warm, dry. ASSESSMENT AND PLAN: A 44-year-old male with symptomatic cholelithiasis as well as possibly mild pancreatitis. He is also found to be hypertensive and we will admit him, start pain control, IV fluids as well as a clear liquid diet. Once his hypertension is under control and repeat labs did not show any increase in the pancreatic enzymes as well as total bilirubin, we will then proceed with a laparoscopic cholecystectomy. Job ID: [id number] DocumentID: [id number] Dictated Date: 02/20/2020 10:02:44 Product Marketing Programs Manager Date: 02/20/2020 11:13:27 Dictated By: SUDEEP MACKEY MD
--- NOTE | 2020-02-20 11:35 | Progress Note-Pre Operative ---
Pre-Operative Progress Note H&P Reviewed The H&P was reviewed, patient examined and no changes noted. Date Seen by Provider: Feb 20, 2020 Time Seen by Provider: 11:30 Date H&P Reviewed: Feb 20, 2020 Time H&P Reviewed: 11:30 Pre-Operative Diagnosis: chronic calculous cholecystitis SUDEEP MACKEY MD Feb 20, 2020 11:35
[2020-02-20] MEDS ORDERED: HYDROcodone/APAP 5 MG/325 MG (LORTAB) TAB PO PRN (11:45)
[2020-02-20] MEDS ORDERED: ONDANSETRON 4 MG/2 ML (SDV) Z0FRAN IV PRN (11:45)
[2020-02-20] MEDS ORDERED: fentaNYL INJECTION 100 MCG/2 ML AMP IV PRN (11:45)
[2020-02-20 12:00] VITALS: BP 170/118
[2020-02-20] MEDS ORDERED: hydrALAZINE (APESOLINE) 20 MG/ML VIAL IV PRN ×2 (12:00)
[2020-02-20] MEDS ORDERED: ANTACID SUSP 30 ML UDC (MYLANTA) PO PRN (12:00)
[2020-02-20] MEDS: HYDROcodone/APAP 7.5 MG/325 MG (LORTAB, LORCET PLUS) TABLET PO PRN ×2 (12:28→21:13)
[2020-02-20] MEDS: LACTATED RINGERS 1,000 ML IV SCH (13:43)
[2020-02-20 16:00] VITALS: BP 161/107
--- NOTE | 2020-02-20 18:57 | NUR ---
VALERIO AGUILLON T[place] admitted to room 417-1, with an admitting diagnosis of CHOLECYSTIS, on 02/20/20 from ED via WHEELCHAIR, accompanied by ED STAFF AND PARA OPERATOR. VALERIO AGUILLON introduced to surroundings, call light, bed controls, phone, TV, temperature control, lights, meal times, smoking policy, visitor policy, side rail policy, bathrooms and showers. Patient Rights given to patient in the handbook. VALERIO AGUILLON verbalizes understanding that [facility] is not responsible for the loss or damage to any personal effects or valuables that are kept in the patients possession during their hospitalization. The following Patient Care Plans were discussed with the PATIENT: Discharge Planning, CHOLECYSTIS, SURGICAL INTERVENTION and KNOWLEDGE DEFICIT. VALERIO AGUILLON verbalizes understanding of Interdisciplinary Patient Education. Patient and/or family were informed about the Rapid Response Team and its purpose.
[2020-02-20 20:00] VITALS: BP 184/116
[2020-02-20] MEDS: meTOprolol TARTRATE 25 MG (LOPRESSOR) TABLET PO SCH (21:13)
[2020-02-21] VITALS (17 sets, daily range): BP systolic 140–183; BP diastolic 85–111
[2020-02-21] MEDS: fentaNYL INJECTION 100 MCG/2 ML AMP IVP PRN ×2 (05:32→14:11)
[2020-02-21 06:27] LABS: BASOPHILS # (AUTO) 0.1 10^3/uL (0.0-0.1); BASOPHILS % (AUTO) 1 % (0-10); EOSINOPHILS # (AUTO) 0.3 10^3/uL (0.0-0.3); EOSINOPHILS % (AUTO) 3 % (0-10); HEMATOCRIT 44 % (40-54); HEMOGLOBIN 15.6 g/dL (13.3-17.7); LYMPHOCYTES # (AUTO) 2.4 10^3/uL (1.0-4.0); LYMPHOCYTES % (AUTO) 22 % (12-44); MEAN CORPUSCULAR HEMOGLOBIN 31 pg (25-34); MEAN CORPUSCULAR HGB CONC 35 g/dL (32-36); MEAN CORPUSCULAR VOLUME 89 fL (80-99); MEAN PLATELET VOLUME 11.6 fL (9.0-12.2); MONOCYTES # (AUTO) 1.2 10^3/uL (0.0-1.0); MONOCYTES % (AUTO) 11 % (0-12); NEUTROPHILS # (AUTO) 6.9 10^3/uL (1.8-7.8); NEUTROPHILS % (AUTO) 63 % (42-75); PLATELET COUNT 220 10^3/uL (130-400); WHITE BLOOD COUNT 10.9 10^3/uL (4.3-11.0)
[2020-02-21 06:41] LABS: ALBUMIN 3.6 GM/DL (3.2-4.5); CHLORIDE 106 MMOL/L (98-107); POTASSIUM 3.8 MMOL/L (3.6-5.0); SODIUM 139 MMOL/L (135-145)
[2020-02-21 06:42] LABS: CALCIUM 8.2 MG/DL (8.5-10.1)
[2020-02-21 06:43] LABS: GLUCOSE 101 MG/DL (70-105); TOTAL PROTEIN 7.2 GM/DL (6.4-8.2)
[2020-02-21 06:44] LABS: CARBON DIOXIDE 21 MMOL/L (21-32)
[2020-02-21 06:45] LABS: BILIRUBIN,TOTAL 1.6 MG/DL (0.1-1.0)
[2020-02-21 06:47] LABS: ALKALINE PHOSPHATASE 58 U/L (40-136); CREATININE SERUM 0.81 MG/DL (0.60-1.30); GFR ESTIMATED > 60
[2020-02-21 06:48] LABS: BUN/CREATININE RATIO 11
[2020-02-21 06:50] LABS: ALANINE AMINOTRANSFERASE 25 U/L (0-55)
[2020-02-21] MEDS: meTOprolol TARTRATE 25 MG (LOPRESSOR) TABLET PO SCH ×2 (08:50→21:39)
[2020-02-21] MEDS ORDERED: PANTOPRAZOLE 40 MG (PROTONIX) VIAL IV SCH (09:00)
[2020-02-21] MEDS ORDERED: LISI10TA2 PO (10:16)
[2020-02-21] MEDS ORDERED: ACET-2267 PO (10:16)
--- NOTE | 2020-02-21 10:18 | NUR ---
I SPOKE WITH THE PATIENT AND WENT THROUGH THE MED LIST PROVIDED FROM THE SNF TO COMPLETE THIS MED REC. MED LIST IN ON FILE. OTC: TYLENOL
[2020-02-21] MEDS: LACTATED RINGERS 1,000 ML IV SCH ×2 (12:36→17:01)
[2020-02-21] MEDS ORDERED: HYDR-3817 PO (14:08)
--- NOTE | 2020-02-21 14:08 | Discharge Inst-Surgical ---
D/C Lap Instructions-KEY New, Converted, or Re-Newed RX: RX on Chart Follow Up Appt in 2 weeks Activity as tolerated No driving for 24 hours No [address] while on pain medications Incentive Spirometry use every 2 hours while awake Regular Diet Symptoms to Report: Fever over 101 degree F, Nausea/Vomiting Infection Signs and Symptoms to report: Increased redness, Foul odor of wound, Increased drainage Bathing instructions: May shower Operative Area Clean/Dry; Keep incision clean/dry If any problems/questions: Contact your physician or go to Emergency Room SUDEEP MACKEY MD Feb 21, 2020 14:08
--- NOTE | 2020-02-21 14:10 | Progress Note-Pre Operative ---
Pre-Operative Progress Note H&P Reviewed The H&P was reviewed, patient examined and no changes noted. Date Seen by Provider: Feb 21, 2020 Time Seen by Provider: 14:00 Date H&P Reviewed: Feb 21, 2020 Time H&P Reviewed: 14:00 Pre-Operative Diagnosis: chronic calculous cholecystitis SUDEEP MACKEY MD Feb 21, 2020 14:10
[2020-02-21] MEDS ORDERED: BUP/EPI 0.5% 1:200,000 (SENSORCAINE) 30 ML VIAL ONE (14:35)
[2020-02-21] MEDS ORDERED: SEVOFLURANE (ULTANE) 15 ML INHAL SOLN ONE ×2 (14:45→16:12)
[2020-02-21] MEDS ORDERED: fentaNYL INJECTION 100 MCG/2 ML AMP ONE (14:45)
[2020-02-21] MEDS ORDERED: NEOSTIGMINE 3 MG/3 ML VIAL ONE (14:45)
[2020-02-21] MEDS ORDERED: ROCURONIUM 10 MG/ML 5 ML SYRINGE IV ONE ×2 (14:45→15:27)
[2020-02-21] MEDS ORDERED: LIDOCAINE PF 2% 5 ML (XYLOCAINE) VIAL ONE (14:45)
[2020-02-21] MEDS ORDERED: GLYCOPYRROLATE 0.2 MG/ML (ROBINUL) 2 ML VIAL ONE (14:45)
[2020-02-21] MEDS ORDERED: MIDAZOLAM 2 MG/2 ML (VERSED) VIAL ONE (14:45)
[2020-02-21] MEDS ORDERED: ONDANSETRON 4 MG/2 ML (SDV) Z0FRAN ONE (14:45)
[2020-02-21] MEDS ORDERED: proPOfol 200 MG/20 ML (DIPRIVAN) VIAL IV ONE (14:45)
[2020-02-21] MEDS: LACTATED RINGERS 1,000 ML IV PRN ×2 (14:57→15:44)
[2020-02-21] MEDS ORDERED: ceFAZolin INJECTION 3,000 MG ONE (15:08)
[2020-02-21] MEDS ORDERED: ESMOLOL 100 MG/10 ML (BREVIBLOC) VIAL ONE (15:37)
[2020-02-21] MEDS ORDERED: HYDROmorphone 2 MG/ML VIAL (DILAUDID) ONE ×2 (15:49→16:24)
--- NOTE | 2020-02-21 16:00 | Progress Note-Post Operative ---
Post-Operative Progess Note Surgeon (s)/Core Shaper Sides (s) Surgeon SUDEEP MACKEY MD Core Shaper Sides: frank norton ACROBATIC DANCER Pre-Operative Diagnosis chronic calculous cholecystitis Post-Operative Diagnosis same Procedure & Operative Findings Date of Procedure 02/21/20 Procedure Performed/Findings laparoscopic cholecystectomy Anesthesia Type get Estimated Blood Loss Estimated blood loss (mL): minimal Specimens/Packing Specimens Removed gallbladder SUDEEP MACKEY MD Feb 21, 2020 16:00
[2020-02-21] MEDS ORDERED: LABETALOL HCL 20 MG/4 ML VIAL ONE (16:24)
[2020-02-21] MEDS ORDERED: LABETALOL HCL 100 MG/20 ML VIAL IV ONE (16:30)
[2020-02-21] MEDS ORDERED: morphine INJ 10 MG/ML 1ML (SYR OR VIAL) IVP ONE (16:30)
[2020-02-21] MEDS ORDERED: HYDROmorphone 2 MG/ML VIAL (DILAUDID) IV ONE (16:30)
--- NOTE | 2020-02-21 16:32 | Anesthesia-General Post-Op ---
General Patient Condition Mental Status/LOC: Same as Preop Cardiovascular: Satisfactory Nausea/Vomiting: Absent Respiratory: Satisfactory Pain: Controlled Complications: Absent Post Op Complications Complications None Follow Up Care/Instructions Patient Instructions None needed. Anesthesia/Patient Condition Patient Condition Patient is doing well, no complaints, stable vital signs, no apparent adverse anesthesia problems. INOCENTE HURLEY DO Feb 21, 2020 16:32
[2020-02-21] MEDS ORDERED: ONDANSETRON 4 MG/2 ML (SDV) Z0FRAN IVP PRN (16:45)
--- NOTE | 2020-02-21 17:15 | NUR ---
RECEIVED FROM RECOVERY, REPORT FROM CRISTINA SETHI, AWAKE, LAP SITE TIMES THREE WITHOUT BLEEDING OR REDNESS, ABD SOFT, ICE PACK TO ABD, O2 SAT 96 PERCENT, SCD'S APPLIED, ICE CHIPS GIVEN, CALL LIGHT WITHIN REACH, NO NAUSEA, SECURITY AT BEDSIDE, VOIDED ELLIE CLEAR URINE. BP 169/101
[2020-02-21] MEDS: HYDROcodone/APAP 7.5 MG/325 MG (LORTAB, LORCET PLUS) TABLET PO PRN (21:39)
--- NOTE | 2020-02-22 01:48 | OPERATIVE REPORT ---
DATE OF SERVICE: 02/21/2020 PREOPERATIVE DIAGNOSIS: Chronic calculous cholecystitis. POSTOPERATIVE DIAGNOSIS: Chronic calculous cholecystitis. PROCEDURE: Laparoscopic cholecystectomy. SURGEON: Sudeep Mackey MD. TRUCKING MANAGER: Abdelrahman Antony APRN. ANESTHESIA: General endotracheal. ESTIMATED BLOOD LOSS: Minimal. FINDINGS: Chronically inflamed gallbladder with two large gallstones. DISPOSITION: The patient tolerated the procedure well. INDICATION: The patient is a 44-year-old male who is incarcerated. He was brought to the Emergency Department due to crampy abdominal pain starting one day previous to admission in the epigastric region as well as a right upper abdominal quadrant. He has had this issue before; however, not severe. He also did have a previous visit approximately one month ago and was found to have cholelithiasis. He states that the pain began after eating a meal and a CT scan was performed, which did show large gallstones as well as the possibility of mild pancreatitis. DESCRIPTION OF PROCEDURE: The patient was brought to the operating room, laid supine on the table. After adequate IV pain and sedative medications and general endotracheal intubation, the abdomen was prepped and draped in standard surgical fashion. A 0.5% Marcaine with epinephrine was used to anesthetize overlying skin in the right upper abdominal quadrant and a transverse skin incision made using 15-blade. An 0 silk suture was applied to the medial aspect of incision for retraction and the Veress needle inserted with a low opening pressure of 0 mmHg. The abdomen was then insufflated to 15 mmHg pressure. The Veress needle removed and a 5 mm XL trocar placed followed by a 5 mm 45-degree angle laparoscope. There were omental adhesions towards the anterior abdominal wall from a previous midline laparotomy incision and splenectomy. We were able to navigate around this and a left upper abdominal quadrant 5 mm port as well as a supraumbilical 10 mm port were placed after the skin and peritoneal lining were anesthetized using 0.5% Marcaine with epinephrine. The patient was then placed in reverse Trendelenburg position as well as plane right side up, left side down. The fundus of the gallbladder was then retracted anteriorly and superiorly. The hepatoduodenal ligament was then opened using cautery on the hook instrument as well as blunt dissection. The entire critical view of safety was identified including the triangle of Calot as well as the cystic duct and artery as the only two structures going into the gallbladder as well as the cystic plate behind the proximal gallbladder. A timeout was then taken and the cystic duct and artery were then clipped proximally, distally and cut with EndoShears. The gallbladder was then dissected off the liver bed using cautery on the hook instrument with visualization of good hemostasis as well as no leaking ducts of Luschka. The gallbladder was removed through the 10 mm port site using an EndoCatch bag. The 10 mm port site fascia and peritoneum were then closed under direct visualization using a Rene-Demarcus device and 0 Vicryl suture. The abdomen was desufflated and remaining ports removed. All skin incisions were closed using 4-0 Monocryl running subcuticular sutures. Wounds were then cleaned and covered with Dermabond. The patient tolerated the procedure well. We will start IV normal pain medication as well as a clear liquid diet. Once he is tolerating clears, has good pain control with oral pain medications, ambulating well, we will discharge him back to his incarceration status. Job ID: [id number] DocumentID: [id number] Dictated Date: 02/21/2020 16:15:20 Lining Stitcher Date: 02/22/2020 01:47:13 Dictated By: SUDEEP MACKEY MD
--- NOTE | 2020-02-22 07:40 | Anesthesia-General Post-Op ---
General Patient Condition Mental Status/LOC: Same as Preop Cardiovascular: Satisfactory Nausea/Vomiting: Absent Respiratory: Satisfactory Pain: Controlled Complications: Absent Post Op Complications Complications None Follow Up Care/Instructions Patient Instructions None needed. Anesthesia/Patient Condition Patient Condition Patient is doing well, no complaints, stable vital signs, no apparent adverse anesthesia problems. No complications reported per nursing. VIOLETTE DE GUZMAN CRNA Feb 22, 2020 07:40
== END 2020-02-21 22:05 | disposition home or self-care (01) ==
LOC: EDUNIT# 07:17 → ER 07:19 → 4TH 09:30
PROVIDERS: ADMIT Surgery; ATTEND Surgery
DX: K80.12 Calculus of gallbladder with acute and chronic cholecystitis without obstruction (principal); K66.0 Peritoneal adhesions (postprocedural) (postinfection); I10 Essential (primary) hypertension; K75.9 Inflammatory liver disease, unspecified; F17.210 Nicotine dependence, cigarettes, uncomplicated; K85.10 Biliary acute pancreatitis without necrosis or infection; E66.9 Obesity, unspecified; Z68.34 Body mass index [BMI] 34.0-34.9, adult; Z79.82 Long term (current) use of aspirin; Z79.899 Other long term (current) drug therapy; Z88.2 Allergy status to sulfonamides; Z20.828 Contact with and (suspected) exposure to other viral communicable diseases; Z80.43 Family history of malignant neoplasm of testis
CPT/HCPCS: 47562; 74177; 80053 ×2; 81000; 83690; 85025 ×2; 86141; 87081; 88304; 96361; 96374; 96375; 99284; U0002; 36415; 87635

== ENCOUNTER → 2020-05-09 | Outpatient (CLI) | payer OTHER ==
[~2020-05-09] VITALS: Ht 195 cm; Wt 125.0 kg
[~2020-05-09] MED LIST changes: +HYDR-3817 PO; +REGADENOSON 0.4 MG/5 ML SYR (LEXISCAN) IV ONE
[2020-05-09] MEDS: CATHETER FLUSH 10 ML SYR IV PRN ×2 (11:15→12:22)
[2020-05-09 12:21] VITALS: BP 174/112
--- NOTE | 2020-05-10 14:51 | STRESS TEST ---
DATE OF SERVICE: 05/09/2020 RESTING AND POST REGADENOSON TECHNETIUM-99M TETROFOSMIN SPECT CT IMAGING. ORDERING PHYSICIAN: Dr. Padilla. CLINICAL DIAGNOSIS: Chest discomfort. Baseline images were carried out after injection of 10.62 mCi of technetium-99m Tetrofosmin. This was followed by 0.4 mg of Regadenoson and 29.6 mCi of technetium-99m Tetrofosmin for stress imaging. The patient tolerated the procedure well. The electrocardiogram showed sinus rhythm with diffuse ST segment abnormality at the baseline. This did not change significantly with the Regadenoson infusion. Review of images at rest and following stress does not indicate any distinct perfusion defect consistent with any significant myocardial ischemia or infarction. Gated images show normal global left ventricular systolic function with normal regional wall motion. Left ventricular ejection fraction is calculated to be 57%. Left ventricular end diastolic volume is 150 mL. TID is absent (0.98). CONCLUSIONS: 1. No evidence of any significant myocardial ischemia or infarction. 2. Normal regional wall motion. 3. Normal global left ventricular systolic function with an ejection fraction of 57%. 4. Mild cardiomegaly. Job ID: [id number] DocumentID: [id number] Dictated Date: 05/10/2020 14:32:56 Social Security Specialist Date: 05/10/2020 14:51:20 Dictated By: EMILE PADILLA MD, MA, FACP, FACC,
== END ==
LOC: CARD 11:00
PROVIDERS: ATTEND Internal Medicine Cardiovascular Disease
DX: I51.7 Cardiomegaly (principal)
CPT/HCPCS: 78452; 93017; 93306; A9502

== ENCOUNTER 2020-08-16 22:29 | Observation (INO) | payer OTHER ==
[~2020-08-16] VITALS: Ht 193 cm; Wt 142.5 kg
[~2020-08-16 22:29] MED LIST changes: -LISI-552 PO; -LISI10TA2 PO; +LISI10TA25 PO; +LISI20TA26 PO; -REGADENOSON 0.4 MG/5 ML SYR (LEXISCAN) IV ONE
[2020-08-16] MEDS ORDERED: ACETAMINOPHEN 500 MG TAB (TYLENOL) PO STA (22:37)
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
[2020-08-16] MEDS ORDERED: LACTATED RINGERS 1,000 ML IV ONE (22:45)
[2020-08-16] MEDS ORDERED: ONDANSETRON 4 MG/2 ML (SDV) Z0FRAN IVP ONE (22:45)
[2020-08-16 23:25] LABS: BASOPHILS # (AUTO) 0.2 10^3/uL (0.0-0.1); BASOPHILS % (AUTO) 1 % (0-10); EOSINOPHILS # (AUTO) 0.1 10^3/uL (0.0-0.3); EOSINOPHILS % (AUTO) 0 % (0-10); HEMATOCRIT 48 % (40-54); HEMOGLOBIN 16.7 g/dL (13.3-17.7); LYMPHOCYTES # (AUTO) 1.5 10^3/uL (1.0-4.0); LYMPHOCYTES % (AUTO) 6 % (12-44); MEAN CORPUSCULAR HEMOGLOBIN 32 pg (25-34); MEAN CORPUSCULAR HGB CONC 35 g/dL (32-36); MEAN CORPUSCULAR VOLUME 90 fL (80-99); MEAN PLATELET VOLUME 12.1 fL (9.0-12.2); MONOCYTES # (AUTO) 2.8 10^3/uL (0.0-1.0); MONOCYTES % (AUTO) 11 % (0-12); NEUTROPHILS # (AUTO) 21.3 10^3/uL (1.8-7.8); NEUTROPHILS % (AUTO) 81 % (42-75); PLATELET COUNT 226 10^3/uL (130-400); WHITE BLOOD COUNT 26.2 10^3/uL (4.3-11.0)
[2020-08-16 23:28] LABS: BILIRUBIN,URINE NEGATIVE (NEGATIVE); CLARITY,URINE CLEAR; COLOR,URINE YELLOW; GLUCOSE, URINE (UA) NEGATIVE (NEGATIVE); KETONES,URINE NEGATIVE (NEGATIVE); LEUKOCYTE ESTERASE ,URINE NEGATIVE (NEGATIVE); NITRITE,URINE NEGATIVE (NEGATIVE); PROTEIN,URINE NEGATIVE (NEGATIVE)
[2020-08-16 23:40] LABS: AMPHETAMINE SCREEN, URINE NEGATIVE (NEGATIVE); BARBITURATE SCREEN URINE NEGATIVE (NEGATIVE); BENZODIAZEPINES SCREEN URINE NEGATIVE (NEGATIVE); CANNABINOID SCREEN, URINE NEGATIVE (NEGATIVE); COCAINE SCREEN URINE NEGATIVE (NEGATIVE); METHADONE STAT NEGATIVE (NEGATIVE); METHAMPHETAMINE SCREEN URINE S NEGATIVE (NEGATIVE); OPIATE SCREEN URINE NEGATIVE (NEGATIVE); OXYCODONE STAT NEGATIVE (NEGATIVE); PROPOXYPHENE STAT NEGATIVE (NEGATIVE); TRICYCLIC ANTIDEPRESSANTS SCRE NEGATIVE (NEGATIVE)
[2020-08-16 23:46] LABS: ERYTHROCYTE SEDIMENTATION RATE 4 MM/HR (0-15)
[2020-08-16 23:47] LABS: ALANINE AMINOTRANSFERASE 32 U/L (0-55); ALBUMIN 3.7 GM/DL (3.2-4.5); ALKALINE PHOSPHATASE 58 U/L (40-136); BILIRUBIN,TOTAL 1.6 MG/DL (0.1-1.0); BUN/CREATININE RATIO 17; CALCIUM 8.4 MG/DL (8.5-10.1); CARBON DIOXIDE 18 MMOL/L (21-32); CHLORIDE 107 MMOL/L (98-107); CREATININE SERUM 1.13 MG/DL (0.60-1.30); GFR ESTIMATED > 60; GLUCOSE 97 MG/DL (70-105); POTASSIUM 3.3 MMOL/L (3.6-5.0); SODIUM 139 MMOL/L (135-145); TOTAL PROTEIN 7.4 GM/DL (6.4-8.2)
[2020-08-16 23:49] LABS: BACTERIA,URINE NEGATIVE /HPF; WBC,URINE RARE /HPF
[2020-08-16 23:54] LABS: BAND NEUTROPHILS 6 %; NEUTROPHILS % (MANUAL) 75 %
[2020-08-16 23:55] LABS: LYMPHOCYTES % (MANUAL) 10 %; MONOCYTES % (MANUAL) 9 %; RBC MORPH NORMAL
[2020-08-17] MEDS ORDERED: cefTRIAXone FOR IV USE 1,000 MG in WATER (STERILE) FOR INJECTION 10 ML IV ONE (00:15)
[2020-08-17] MEDS ORDERED: AZITHROMYCIN INJECTION 500 MG in NS (IVPB) 250 ML IV ONE (00:15)
[2020-08-17] MEDS ORDERED: LACTATED RINGERS 1,000 ML IV ONE (00:15)
[2020-08-17] MEDS ORDERED: NS 100 ML (IVPB) BAG IV ONE (01:30)
[2020-08-17] MEDS ORDERED: HOLD METFORMIN - RECEIVED CONTRAST 20 ML VIAL IV SCH (01:30)
[2020-08-17] MEDS ORDERED: CATHETER FLUSH 10 ML SYR IV PRN (01:30)
[2020-08-17] MEDS ORDERED: IOHEXOL 350 MG/ML 100 ML (OMNIPAQUE 350) VIAL IV ONE (01:30)
[2020-08-17] MEDS ORDERED: ACETAMINOPHEN 500 MG TAB (TYLENOL) PO PRN (03:00)
[2020-08-17] MEDS ORDERED: ONDANSETRON 4 MG/2 ML (SDV) Z0FRAN IV PRN (03:00)
[2020-08-17] MEDS: D5 1/2 NS W/KCL 20 MEQ/L 1,000 ML IV SCH ×3 (03:14→16:11)
[2020-08-17 04:00] VITALS: BP 136/90
[2020-08-17 04:05] VITALS: BP 129/75
[2020-08-17 05:34] LABS: BASOPHILS # (AUTO) 0.2 10^3/uL (0.0-0.1); BASOPHILS % (AUTO) 1 % (0-10); EOSINOPHILS % (AUTO) 0 % (0-10); HEMATOCRIT 46 % (40-54); HEMOGLOBIN 15.7 g/dL (13.3-17.7); LYMPHOCYTES # (AUTO) 2.5 10^3/uL (1.0-4.0); LYMPHOCYTES % (AUTO) 8 % (12-44); MEAN CORPUSCULAR HEMOGLOBIN 32 pg (25-34); MEAN CORPUSCULAR HGB CONC 34 g/dL (32-36); MEAN CORPUSCULAR VOLUME 93 fL (80-99); MEAN PLATELET VOLUME 11.6 fL (9.0-12.2); MONOCYTES # (AUTO) 1.3 10^3/uL (0.0-1.0); MONOCYTES % (AUTO) 4 % (0-12); NEUTROPHILS # (AUTO) 26.5 10^3/uL (1.8-7.8); NEUTROPHILS % (AUTO) 86 % (42-75); PLATELET COUNT 197 10^3/uL (130-400)
[2020-08-17 05:45] LABS: WHITE BLOOD COUNT 30.8 10^3/uL (4.3-11.0)
[2020-08-17 05:52] LABS: ALANINE AMINOTRANSFERASE 29 U/L (0-55); ALBUMIN 3.3 GM/DL (3.2-4.5); ALKALINE PHOSPHATASE 53 U/L (40-136); BILIRUBIN,TOTAL 0.8 MG/DL (0.1-1.0); BUN/CREATININE RATIO 14; CALCIUM 7.9 MG/DL (8.5-10.1); CARBON DIOXIDE 19 MMOL/L (21-32); CHLORIDE 108 MMOL/L (98-107); CREATININE SERUM 1.11 MG/DL (0.60-1.30); GFR ESTIMATED > 60; GLUCOSE 108 MG/DL (70-105); POTASSIUM 3.9 MMOL/L (3.6-5.0); SODIUM 140 MMOL/L (135-145); TOTAL PROTEIN 6.7 GM/DL (6.4-8.2)
--- NOTE | 2020-08-17 06:51 | Diagnostic Imaging Report ---
EXAMINATION: CT angiography of the chest. TECHNIQUE: Contrast enhanced thin section helical images were obtained through the chest with intravenous contrast timed for the optimal opacification of the arterial structures per CTA protocol. Post-processing, reconstructions and interpretation of angiographic images of the vessels was performed. 3D MIP reconstructions were performed and reviewed. All CT scans use one or more of the following dose optimizing techniques: automated exposure control, MA and/or KvP adjustment based on a patient size and exam type, or iterative reconstruction. HISTORY: Cough, fever, shortness of breath. COMPARISON: CTA chest 01/11/2020 FINDINGS: Vascular: Suboptimal evaluation secondary to poor bolus timing. No filling defects within the pulmonary arteries. Thoracic aorta is normal in caliber. Thyroid: The thyroid is normal. Mediastinum: Heart size is normal without significant pericardial effusion. No suspicious lymphadenopathy. Lungs and airways: The lungs are clear without consolidation, pleural effusion, or pneumothorax. A stable 0.4 cm right middle lobe subpleural pulmonary nodule. The airways are normal. Upper abdomen: The subphrenic structures are normal. Musculoskeletal: No suspicious osseous lesion or compression fracture. IMPRESSION: 1. Although evaluation is suboptimal secondary to bolus timing, there are no findings to suggest pulmonary embolus. 2. No other acute abnormality in the chest. 3. Stable 0.4 cm right middle lobe pulmonary nodule. 4. Agree with preliminary interpretation. Dictated by: Dictated on workstation # [id number]
[2020-08-17 07:35] VITALS: BP 132/74
--- NOTE | 2020-08-17 08:27 | Diagnostic Imaging Report ---
INDICATION: Fever and cough. Frontal chest obtained at 12:04 a.m. and compared 01/11/2020. FINDINGS: Heart is borderline in size. There is mild central vascular prominence. There are mild chronic appearing increased interstitial markings which are similar to the prior study. There is no acute infiltrate or pneumothorax or pleural fluid. IMPRESSION: Borderline heart size with mild central vascular prominence. No acute process in the chest. Dictated by: Dictated on workstation # [id number]
[2020-08-17] MEDS: IBUPROFEN 800 MG (MOTRIN) TAB PO PRN ×2 (08:31→20:39)
[2020-08-17] MEDS ORDERED: AMLO-250 PO (09:49)
[2020-08-17] MEDS ORDERED: LISI40TA9 PO (09:49)
[2020-08-17] MEDS ORDERED: MTP100TCR PO (09:49)
[2020-08-17] MEDS: RT-ALBUTEROL/IPRATROPIUM 3 ML (DUONEB) VIAL INH PRN (10:16)
[2020-08-17 12:20] VITALS: BP 141/76
[2020-08-17 15:34] VITALS: BP 132/73
--- NOTE | 2020-08-17 16:32 | History & Physical ---
HPI History of Present Illness: 44 yo M that came to ER from detention for sudden onset of shortness of breath. Patient states that it started suddenly yesterday around 1500. He is also having nausea, fever and chills. Denies similar complaints. States that he has controlled HTN and chronic Hep C and he denies any previous treatment. States that he has been seeing Dr Anderson via tele since he has been in Skilled Nursing. States that he has been there since Feb. He has had [place] and [place] Covid vaccine several weeks ago. Denies any other complaints at this time. States that he feels somewhat improved this AM but still having shortness of breath. Source: patient Exam Limitations: no limitations Date seen by provider: Aug 17, 2020 Time Seen by Provider: 11:00 Attending Physician Chichi Mathews MD PCP No,Local Physician Consult Date of Admission Aug 16, 2020 at 22:32 Home Medications Home Medications Reviewed patient Home Medication Reconciliation performed by pharmacy medication reconciliations metal wire technician and/or nursing. Patients Allergies have been reviewed. Allergies Coded Allergies: Sulfa (Sulfonamide Antibiotics) (Verified Allergy, Unknown, 09/10/18) NFB-Vdlqrs-Uyhnjs Hx Patient Social History Drug of Choice: METH Smoking Status: Former Smoker Recent Hopitalizations: No Alcohol Use?: No Substance type: Methamphetamine Have you traveled recently?: No Past Medical History HTN Chronic Hep C, No previous treatment Tobacco Abuse Family Medical History Significant Family History: No Pertinent Family Hx Other Significan Family Hx: STRESS TEST 05/19/20 -- CONCLUSIONS: 1. No evidence of any significant myocardial ischemia or infarction. 2. Normal regional wall motion. 3. Normal global left ventricular systolic function with an ejection fraction of 57%. 4. Mild cardiomegaly. Family History: Arthritis 19 MOTHER Cardiovascular disease 19 MOTHER Degenerative disc disease 19 MOTHER Gout 19 MOTHER Testicular cancer 19 FATHER Review of Systems ([facility]) Constitutional: chills, fever, malaise EENTM: nose congestion; No mouth pain, No nose pain Respiratory: cough, dyspnea on exertion; No orthopnea; short of breath Cardiovascular: no symptoms reported; No chest pain, No edema, No palpitations Gastrointestinal: No constipation, No diarrhea; loss of appetite, nausea; No vomiting Genitourinary: no symptoms reported; No dysuria, No frequency, No hematuria Musculoskeletal: no symptoms reported; No back pain, No joint pain, No muscle pain Skin: no symptoms reported; No lesions, No rash Psychiatric/Neurological: No Symptoms Reported Reviewed Test Results Reviewed Test Results Lab Laboratory Tests Test 08/16/20 22:55 08/17/20 00:01 08/17/20 01:37 08/17/20 05:27 Range/Units White Blood Count 26.2 H 30.8 *H 4.3-11.0 10^3/uL Red Blood Count 5.30 4.98 4.30-5.52 10^6/uL Hemoglobin 16.7 15.7 13.3-17.7 g/dL Hematocrit 48 46 40-54 % Mean Corpuscular Volume 90 93 80-99 fL Mean Corpuscular Hemoglobin 32 32 25-34 pg Mean Corpuscular Hemoglobin Concent 35 34 32-36 g/dL Red Cell Distribution Width 13.4 14.0 10.0-14.5 % Platelet Count 226 197 130-400 10^3/uL Mean Platelet Volume 12.1 11.6 9.0-12.2 fL Immature Granulocyte % (Auto) 1 1 % Neutrophils (%) (Auto) 81 H 86 H 42-75 % Lymphocytes (%) (Auto) 6 L 8 L 12-44 % Monocytes (%) (Auto) 11 4 0-12 % Eosinophils (%) (Auto) 0 0 0-10 % Basophils (%) (Auto) 1 1 0-10 % Neutrophils # (Auto) 21.3 H 26.5 H 1.8-7.8 10^3/uL Lymphocytes # (Auto) 1.5 2.5 1.0-4.0 10^3/uL Monocytes # (Auto) 2.8 H 1.3 H 0.0-1.0 10^3/uL Eosinophils # (Auto) 0.1 0.0 0.0-0.3 10^3/uL Basophils # (Auto) 0.2 H 0.2 H 0.0-0.1 10^3/uL Immature Granulocyte # (Auto) 0.3 H 0.3 H 0.0-0.1 10^3/uL Neutrophils % (Manual) 75 % Lymphocytes % (Manual) 10 % Monocytes % (Manual) 9 % Band Neutrophils 6 % Blood Morphology Comment NORMAL Erythrocyte Sedimentation Rate 4 0-15 MM/HR D-Dimer 0.81 H 0.00-0.49 UG/ML Urine Color YELLOW Urine Clarity CLEAR Urine pH 7.0 5-9 Urine Specific [place] 1.010 L 1.016-1.022 Urine Protein NEGATIVE NEGATIVE Urine Glucose (UA) NEGATIVE NEGATIVE Urine Ketones NEGATIVE NEGATIVE Urine Nitrite NEGATIVE NEGATIVE Urine Bilirubin NEGATIVE NEGATIVE Urine Urobilinogen 0.2 < = 1.0 MG/DL Urine Leukocyte Esterase NEGATIVE NEGATIVE Urine RBC (Auto) NEGATIVE NEGATIVE Urine RBC NONE /HPF Urine WBC RARE /HPF Urine Crystals NONE /LPF Urine Bacteria NEGATIVE /HPF Urine Casts NONE /LPF Urine Mucus NEGATIVE /LPF Urine Culture Indicated CULTURE PENDING Sodium Level 139 140 135-145 MMOL/L Potassium Level 3.3 L 3.9 3.6-5.0 MMOL/L Chloride Level 107 108 H 98-107 MMOL/L Carbon Dioxide Level 18 L 19 L 21-32 MMOL/L Anion Gap 14 13 5-14 MMOL/L Blood Urea Nitrogen 19 H 15 7-18 MG/DL Creatinine 1.13 1.11 0.60-1.30 MG/DL Estimat Glomerular Filtration Rate > 60 > 60 BUN/Creatinine Ratio 17 14 Glucose Level 97 108 H 70-105 MG/DL Lactic Acid Level 2.35 *H 2.93 *H 1.55 0.50-2.00 MMOL/L Calcium Level 8.4 L 7.9 L 8.5-10.1 MG/DL Corrected Calcium 8.6 8.5 8.5-10.1 MG/DL Total Bilirubin 1.6 H 0.8 0.1-1.0 MG/DL Aspartate Amino Transf (AST/SGOT) 32 28 5-34 U/L Alanine Aminotransferase (ALT/SGPT) 32 29 0-55 U/L Alkaline Phosphatase 58 53 40-136 U/L Lactate Dehydrogenase 269 H 125-220 U/L C-Reactive Protein High Sensitivity 0.86 H 0.00-0.50 MG/DL Total Protein 7.4 6.7 6.4-8.2 GM/DL Albumin 3.7 3.3 3.2-4.5 GM/DL Procalcitonin 1.61 H <0.10 NG/ML Urine Opiates Screen NEGATIVE NEGATIVE Urine Oxycodone Screen NEGATIVE NEGATIVE Urine Methadone Screen NEGATIVE NEGATIVE Urine Propoxyphene Screen NEGATIVE NEGATIVE Urine Barbiturates Screen NEGATIVE NEGATIVE Ur Tricyclic Antidepressants Screen NEGATIVE NEGATIVE Urine Phencyclidine Screen NEGATIVE NEGATIVE Urine Amphetamines Screen NEGATIVE NEGATIVE Urine Methamphetamines Screen NEGATIVE NEGATIVE Urine Benzodiazepines Screen NEGATIVE NEGATIVE Urine Cocaine Screen NEGATIVE NEGATIVE Urine Cannabinoids Screen NEGATIVE NEGATIVE Coronavirus 2019 (TIM) Not Detected Not Detecte Monoscreen NEGATIVE NEGATIVE Group A Streptococcus Screen NEGATIVE NEGATIVE Physical Exam-([facility]) Physical Exam Vital Signs VS - Last 72 Hours, by Label 08/16/20 08/17/20 08/17/20 08/17/20 22:30 02:42 03:22 03:30 Temp 37.4 37.4 Pulse 109 96 92 Resp 20 18 B/P (MAP) 138/97 (111) 129/75 (111) Pulse Ox 97 97 O2 Delivery Nasal Cannula Nasal Cannula O2 Flow Rate 2.00 2.00 2.00 08/17/20 08/17/20 08/17/20 08/17/20 04:00 04:05 04:11 07:00 Temp 37.6 37.4 Pulse 92 96 100 Resp 22 B/P (MAP) 136/90 (105) Pulse Ox 93 97 O2 Delivery Nasal Cannula O2 Flow Rate 2.00 FiO2 28 08/17/20 08/17/20 08/17/20 08/17/20 07:35 08:00 10:10 10:16 Temp 38.1 Pulse 101 Resp 20 B/P (MAP) 132/74 (93) Pulse Ox 93 95 95 O2 Delivery Room Air Room Air Room Air Room Air 08/17/20 08/17/20 08/17/20 12:20 13:00 15:34 Temp 36.4 37.2 Pulse 93 90 84 Resp 20 18 B/P (MAP) 141/76 (97) 132/73 (92) Pulse Ox 93 94 O2 Delivery Room Air Room Air Capillary Refill : Less Than 3 Seconds General Appearance: WD/WN, no apparent distress HEENT: PERRL/EOMI Neck: non-tender, full range of motion, supple Respiratory: chest non-tender, no respiratory distress, no accessory muscle use, crackles, wheezing Cardiovascular: normal peripheral pulses, regular rate, rhythm, no edema, no murmur Gastrointestinal: normal bowel sounds, non tender, soft Back: no CVA tenderness, no vertebral tenderness Extremities: normal range of motion, non-tender, normal inspection, no pedal edema, no calf tenderness, normal capillary refill Neurologic/Psychiatric: application manager II-XII nml as tested, no motor/sensory deficits, alert, normal mood/affect, oriented x 3 Skin: normal color, warm/dry Lymphatic: no adenopathy Assessment/Plan Assessment/Plan Admission Status: Observation (1) Pneumonia Status: Acute Assessment & Plan: - Continue IV antibiotics, leukocytosis trending up, LA resolved Qualifiers: Qualified Codes: J18.9 - Pneumonia, unspecified organism (2) Hypoxia Status: Acute Assessment & Plan: - Titrate oxygen as tolerated (3) HTN (hypertension) Status: Chronic Assessment & Plan: - HDS, restart home meds Qualifiers: Qualified Codes: I10 - Essential (primary) hypertension (4) Chronic hepatitis C Status: Chronic Qualifiers: Qualified Codes: B18.2 - Chronic viral hepatitis C (5) DVT prophylaxis Status: Acute Assessment & Plan: - Lovenox Copy Copies To 1: NATACHA ANDERSON HOLLY R MD Aug 17, 2020 16:32
[2020-08-17 19:24] VITALS: BP 145/89
[2020-08-17] MEDS: meTOprolol SUCCINATE 100 MG (TOPROL XL) TAB PO SCH (20:26)
[2020-08-17] MEDS ORDERED: AZITHROMYCIN INJECTION 500 MG in NS (IVPB) 250 ML IV SCH (21:00)
[2020-08-17] MEDS ORDERED: cefTRIAXone FOR IV USE 1,000 MG in WATER (STERILE) FOR INJECTION 10 ML IV SCH (22:00)
[2020-08-18 00:22] VITALS: BP 138/92
[2020-08-18 05:32] LABS: BASOPHILS # (AUTO) 0.2 10^3/uL (0.0-0.1); BASOPHILS % (AUTO) 1 % (0-10); EOSINOPHILS # (AUTO) 0.2 10^3/uL (0.0-0.3); EOSINOPHILS % (AUTO) 2 % (0-10); HEMATOCRIT 45 % (40-54); HEMOGLOBIN 15.4 g/dL (13.3-17.7); LYMPHOCYTES # (AUTO) 2.9 10^3/uL (1.0-4.0); LYMPHOCYTES % (AUTO) 22 % (12-44); MEAN CORPUSCULAR HEMOGLOBIN 32 pg (25-34); MEAN CORPUSCULAR HGB CONC 34 g/dL (32-36); MEAN CORPUSCULAR VOLUME 93 fL (80-99); MEAN PLATELET VOLUME 12.2 fL (9.0-12.2); MONOCYTES # (AUTO) 1.3 10^3/uL (0.0-1.0); MONOCYTES % (AUTO) 10 % (0-12); NEUTROPHILS # (AUTO) 8.8 10^3/uL (1.8-7.8); NEUTROPHILS % (AUTO) 66 % (42-75); PLATELET COUNT 176 10^3/uL (130-400); WHITE BLOOD COUNT 13.4 10^3/uL (4.3-11.0)
[2020-08-18 05:43] LABS: ALBUMIN 3.2 GM/DL (3.2-4.5); CHLORIDE 109 MMOL/L (98-107); POTASSIUM 3.5 MMOL/L (3.6-5.0); SODIUM 141 MMOL/L (135-145)
[2020-08-18 05:44] LABS: CALCIUM 7.8 MG/DL (8.5-10.1)
[2020-08-18 05:45] LABS: GLUCOSE 142 MG/DL (70-105); TOTAL PROTEIN 6.4 GM/DL (6.4-8.2)
[2020-08-18 05:46] LABS: CARBON DIOXIDE 20 MMOL/L (21-32)
[2020-08-18 05:47] LABS: BILIRUBIN,TOTAL 0.5 MG/DL (0.1-1.0)
[2020-08-18 05:49] LABS: ALKALINE PHOSPHATASE 51 U/L (40-136); CREATININE SERUM 0.97 MG/DL (0.60-1.30); GFR ESTIMATED > 60
[2020-08-18 05:50] LABS: BUN/CREATININE RATIO 10
[2020-08-18 05:52] LABS: ALANINE AMINOTRANSFERASE 39 U/L (0-55)
[2020-08-18] MEDS: D5 1/2 NS W/KCL 20 MEQ/L 1,000 ML IV SCH (06:29)
[2020-08-18 07:20] VITALS: BP 132/80
[2020-08-18 08:12] LABS: BASOPHILS # (AUTO) 0.1 10^3/uL (0.0-0.1); BASOPHILS % (AUTO) 1 % (0-10); EOSINOPHILS # (AUTO) 0.2 10^3/uL (0.0-0.3); EOSINOPHILS % (AUTO) 2 % (0-10); HEMATOCRIT 47 % (40-54); HEMOGLOBIN 16.1 g/dL (13.3-17.7); LYMPHOCYTES # (AUTO) 2.8 10^3/uL (1.0-4.0); LYMPHOCYTES % (AUTO) 23 % (12-44); MEAN CORPUSCULAR HEMOGLOBIN 32 pg (25-34); MEAN CORPUSCULAR HGB CONC 34 g/dL (32-36); MEAN CORPUSCULAR VOLUME 92 fL (80-99); MEAN PLATELET VOLUME 11.5 fL (9.0-12.2); MONOCYTES # (AUTO) 1.4 10^3/uL (0.0-1.0); MONOCYTES % (AUTO) 12 % (0-12); NEUTROPHILS # (AUTO) 7.6 10^3/uL (1.8-7.8); NEUTROPHILS % (AUTO) 62 % (42-75); PLATELET COUNT 192 10^3/uL (130-400); WHITE BLOOD COUNT 12.2 10^3/uL (4.3-11.0)
[2020-08-18 08:51] LABS: BAND NEUTROPHILS 0 %; BASOPHILS % (MANUAL) 2 %; EOSINOPHILS % (MANUAL) 0 %; LYMPHOCYTES % (MANUAL) 23 %; MONOCYTES % (MANUAL) 15 %; NEUTROPHILS % (MANUAL) 60 %; RBC MORPH NORMAL
[2020-08-18] MEDS ORDERED: lisINopril 40 MG (PRINIVIL) TABLET PO SCH (09:00)
[2020-08-18] MEDS ORDERED: amLODIPine 5 MG (NORVASC) TAB PO SCH (09:00)
[2020-08-18] MEDS: meTOprolol SUCCINATE 100 MG (TOPROL XL) TAB PO SCH (09:38)
[2020-08-18] MEDS: IBUPROFEN 800 MG (MOTRIN) TAB PO PRN (09:42)
--- NOTE | 2020-08-18 09:42 | Diagnostic Imaging Report ---
INDICATION: Lower respiratory infection PA and lateral chest Heart size and pulmonary vascularity are normal. Lungs are clear. There are no effusions or pneumothoraces. IMPRESSION: Negative chest Dictated by: Dictated on workstation # [id number]
[2020-08-18] MEDS: RT-ALBUTEROL/IPRATROPIUM 3 ML (DUONEB) VIAL INH PRN (10:39)
--- NOTE | 2020-08-18 10:56 | Discharge Summary ---
Diagnosis/Chief Complaint Date of Admission Aug 16, 2020 at 22:32 Date of Discharge Discharge Diagnosis Problems/Diagnosis: (1) Pneumonia Assessment & Plan: - Continue IV antibiotics, leukocytosis trending up, LA resolved Qualifiers: Qualified Codes: J18.9 - Pneumonia, unspecified organism Status: Acute (2) Hypoxia Assessment & Plan: - Titrate oxygen as tolerated Status: Acute (3) HTN (hypertension) Assessment & Plan: - HDS, restart home meds Qualifiers: Qualified Codes: I10 - Essential (primary) hypertension Status: Chronic (4) Chronic hepatitis C Qualifiers: Qualified Codes: B18.2 - Chronic viral hepatitis C Status: Chronic (5) DVT prophylaxis Assessment & Plan: - Lovenox Status: Acute Chief Complaint/HPI Chief Complaint/HPI 44 yo M that came to ER from alf for sudden onset of shortness of breath. Patient states that it started suddenly yesterday around 1500. He is also having nausea, fever and chills. Denies similar complaints. States that he has con trolled HTN and chronic Hep C and he denies any previous treatment. States that he has been seeing Dr Blanc via tele since [facility] States that he has been there since Feb. He has had [employer] Covid vaccine several weeks ago. Denies any other complaints at this time. States that he feels somewhat improved this AM but still having shortness of breath. Discharge Summary-Simple/Stand Consultations Discharge Physical Examination Allergies: Coded Allergies: Sulfa (Sulfonamide Antibiotics) (Verified Allergy, Unknown, 09/10/18) Vitals & I&Os Vital Sign - Last 12Hours Date Time Temp Pulse Resp B/P (MAP) Pulse Ox O2 Delivery O2 Flow Rate FiO2 08/18/20 10:39 95 Room Air 08/18/20 07:20 36.8 81 18 132/80 (97) 08/17/20 04:11 2.00 08/17/20 04:05 28 Intake and Output 08/18/20 00:00 Intake Total 2300 ml Balance 2300 ml Hospital Course See final discharge diagnosis. Discharge Instructions to patient/family Please see electronic discharge instructions given to patient. Discharge Medications Reviewed and agree with Discharge Medication list on patient's Discharge Instruction sheet LISE FRANCIS MD Aug 18, 2020 10:56
[2020-08-18] MEDS ORDERED: PRD20T PO (11:00)
[2020-08-18] MEDS ORDERED: CEFD300C3 PO (11:00)
[2020-08-18] MEDS ORDERED: AZIT250T12 PO (11:00)
--- NOTE | 2020-08-18 11:01 | Discharge Summary ---
Discharge [facility] Reconcile Patient Problems Problems Reviewed?: Yes Discharge Medications New, Converted or Re-Newed RX: Transmitted to Pharmacy New Medications: Azithromycin (Azithromycin) 250 Mg Tablet 250 MG PO DAILY, #3 TAB Cefdinir (Cefdinir) 300 Mg Capsule 300 MG PO BID for 5 Days, #10 CAP Prednisone (Prednisone) 20 Mg Tab 20 MG PO DAILY, #5 TAB Continued Medications: Amlodipine Besylate (Amlodipine Besylate) 5 Mg Tablet 5 MG PO DAILY, TAB Lisinopril (Lisinopril) 40 Mg Tablet 40 MG PO DAILY, TAB Metoprolol Succinate (Metoprolol Succinate) 100 Mg Tab.er.24h 100 MG PO BID, TAB Patient Instructions Goal/Follow Up Appt: Dr Anderson will follow you Activity & Diet Discharge Diet: Cardiac Diet Activity as Tolerated: Yes Copy Copies To 1: NATACHA ANDERSON HOLLY R MD Aug 18, 2020 11:01
== END 2020-08-18 11:30 ==
LOC: EDUNIT# 22:29 → ER 22:31 → 4TH 22:32
PROVIDERS: ADMIT Family Medicine; ATTEND Family Medicine
DX: J18.9 Pneumonia, unspecified organism (principal); R09.02 Hypoxemia; I10 Essential (primary) hypertension; B18.2 Chronic viral hepatitis C; A41.9 Sepsis, unspecified organism; E86.0 Dehydration; F17.210 Nicotine dependence, cigarettes, uncomplicated; Z88.2 Allergy status to sulfonamides; Z79.891 Long term (current) use of opiate analgesic; Z20.822 Contact with and (suspected) exposure to COVID-19; Z79.899 Other long term (current) drug therapy; Z90.81 Acquired absence of spleen; Z90.49 Acquired absence of other specified parts of digestive tract; Z82.61 Family history of arthritis
CPT/HCPCS: 71045; 71046; 71275; 80053 ×3; 80306; 81000; 83605 ×2; 83615; 84145; 85007 ×2; 85025 ×2; 85027 ×2; 85379; 85652; 86141; 86308; 86703; 87040; 87088; 87430; 87449; 87804; 93041; 94640 ×2; 94664; 94760 ×2; 96361; 96365; 96375; 99284; U0002; 36415; 87635

== ENCOUNTER 2021-07-25 16:07 | Emergency (ER) | payer SELFPAY ==
[~2021-07-25] VITALS: Ht 195 cm; Wt 142.5 kg
[~2021-07-25 16:07] MED LIST changes: +AMLO-250 PO; +AZIT250T12 PO; +CEFD300C3 PO; -LISI1TAB26 PO; +LISI1TAB48 PO; +LISI40TA9 PO; +MTP100TCR PO; +PRD20T PO
[2021-07-25 16:24] VITALS: BP 89/54
[2021-07-25] MEDS ORDERED: LACTATED RINGERS 1,000 ML IV SCH ×2 (16:45→17:15)
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
[2021-07-25 16:50] LABS: BASOPHILS # (AUTO) 0.1 10^3/uL (0.0-0.1); BASOPHILS % (AUTO) 1 % (0-10); EOSINOPHILS # (AUTO) 0.1 10^3/uL (0.0-0.3); EOSINOPHILS % (AUTO) 2 % (0-10); HEMATOCRIT 48 % (40-54); HEMOGLOBIN 16.8 g/dL (13.3-17.7); LYMPHOCYTES # (AUTO) 2.2 10^3/uL (1.0-4.0); LYMPHOCYTES % (AUTO) 33 % (12-44); MEAN CORPUSCULAR HEMOGLOBIN 32 pg (25-34); MEAN CORPUSCULAR HGB CONC 35 g/dL (32-36); MEAN CORPUSCULAR VOLUME 91 fL (80-99); MEAN PLATELET VOLUME 9.6 fL (9.0-12.2); MONOCYTES # (AUTO) 1.1 10^3/uL (0.0-1.0); MONOCYTES % (AUTO) 17 % (0-12); NEUTROPHILS # (AUTO) 3.1 10^3/uL (1.8-7.8); NEUTROPHILS % (AUTO) 47 % (42-75); PLATELET COUNT 332 10^3/uL (130-400); WHITE BLOOD COUNT 6.6 10^3/uL (4.3-11.0)
[2021-07-25 16:57] LABS: CHLORIDE 99 MMOL/L (98-107); POTASSIUM 3.2 MMOL/L (3.6-5.0); SODIUM 137 MMOL/L (135-145)
[2021-07-25 16:58] LABS: CALCIUM 8.5 MG/DL (8.5-10.1)
[2021-07-25 16:59] LABS: GLUCOSE 113 MG/DL (70-105); PROTHROMBIN TIME PATIENT 13.6 SEC (12.2-14.7)
[2021-07-25 17:00] LABS: CARBON DIOXIDE 24 MMOL/L (21-32); TOTAL PROTEIN 7.9 GM/DL (6.4-8.2)
[2021-07-25 17:01] LABS: BILIRUBIN,TOTAL 0.5 MG/DL (0.1-1.0)
[2021-07-25 17:03] LABS: ALKALINE PHOSPHATASE 58 U/L (40-136); CREATININE SERUM 1.66 MG/DL (0.60-1.30); GFR ESTIMATED 51
[2021-07-25 17:04] LABS: BUN/CREATININE RATIO 10
[2021-07-25 17:06] LABS: ALANINE AMINOTRANSFERASE 26 U/L (0-55)
--- NOTE | 2021-07-25 17:13 | Diagnostic Imaging Report ---
EXAMINATION: Chest 1 view. HISTORY: Influenza. COMPARISON: 08/17/2020. FINDINGS: The lungs are clear without edema or pneumonia. No pleural effusion or pneumothorax. Heart size is normal. IMPRESSION: Clear lungs. Dictated by: Dictated on workstation # [id number]
[2021-07-25 19:03] LABS: BILIRUBIN,URINE NEGATIVE (NEGATIVE); CLARITY,URINE CLEAR; COLOR,URINE YELLOW; GLUCOSE, URINE (UA) NEGATIVE (NEGATIVE); KETONES,URINE NEGATIVE (NEGATIVE); LEUKOCYTE ESTERASE ,URINE NEGATIVE (NEGATIVE); NITRITE,URINE NEGATIVE (NEGATIVE); PH,URINE 7.5 (5-9); PROTEIN,URINE TRACE (NEGATIVE)
[2021-07-25 19:18] LABS: AMPHETAMINE SCREEN, URINE POSITIVE (NEGATIVE); BENZODIAZEPINES SCREEN URINE NEGATIVE (NEGATIVE); CANNABINOID SCREEN, URINE NEGATIVE (NEGATIVE); COCAINE SCREEN URINE NEGATIVE (NEGATIVE); METHAMPHETAMINE SCREEN URINE S POSITIVE (NEGATIVE); OPIATE SCREEN URINE NEGATIVE (NEGATIVE)
[2021-07-25 19:19] LABS: BARBITURATE SCREEN URINE NEGATIVE (NEGATIVE); METHADONE STAT NEGATIVE (NEGATIVE); OXYCODONE STAT NEGATIVE (NEGATIVE); PROPOXYPHENE STAT NEGATIVE (NEGATIVE); TRICYCLIC ANTIDEPRESSANTS SCRE NEGATIVE (NEGATIVE)
[2021-07-25 19:24] LABS: BACTERIA,URINE NEGATIVE /HPF; WBC,URINE 0-2 /HPF
== END 2021-07-25 20:10 | disposition home or self-care (01) ==
LOC: EDUNIT# 16:07 → ER 16:09
DX: J10.1 Influenza due to other identified influenza virus with other respiratory manifestations (principal); E86.9 Volume depletion, unspecified
CPT/HCPCS: 71045; 80053; 80306; 81000; 82140; 84145; 85025; 85610; 86141; 93005; 99284; G0480; 36415; 80320

== ENCOUNTER 2021-10-07 19:31 | Inpatient (IN) | payer SELFPAY ==
[~2021-10-07] VITALS: Ht 196 cm; Wt 144.3 kg
[2021-10-07 19:59] LABS: ABG BASE EXCESS -1.7 MMOL/L (-2.5-2.5); ABG OXYGEN SATURATION 95 % (94-100); ABG PCO2 29 MMHG (35-45); ABG PH 7.48 (7.37-7.43); ABG PO2 68 MMHG (79-93); ABG TCO2 22.3 MMOL/L (21.0-31.0); ALLENS TEST POSITIVE; INSPIRED O2 3; PATIENT TEMP 37.2; VENTILATOR NO
[2021-10-07] MEDS ORDERED: cefTRIAXone 1 GM PRE-MIX 50 ML IV ONE (20:00)
[2021-10-07] MEDS ORDERED: NS IV 1000 ML 1,000 ML IV SCH ×2 (20:00→21:30)
[2021-10-07] MEDS ORDERED: AZITHROMYCIN INJECTION 500 MG in NS (IVPB) 250 ML IV ONE (20:00)
[2021-10-07] MEDS ORDERED: ACETAMINOPHEN 500 MG TAB (TYLENOL) PO ONE (20:00)
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
[2021-10-07 20:05] LABS: BASOPHILS # (AUTO) 0.2 10^3/uL (0.0-0.1); BASOPHILS % (AUTO) 1 % (0-10); EOSINOPHILS % (AUTO) 0 % (0-10); HEMATOCRIT 43 % (40-54); HEMOGLOBIN 15.1 g/dL (13.3-17.7); LYMPHOCYTES # (AUTO) 1.5 10^3/uL (1.0-4.0); LYMPHOCYTES % (AUTO) 4 % (12-44); MEAN CORPUSCULAR HEMOGLOBIN 31 pg (25-34); MEAN CORPUSCULAR HGB CONC 35 g/dL (32-36); MEAN CORPUSCULAR VOLUME 89 fL (80-99); MEAN PLATELET VOLUME 10.1 fL (9.0-12.2); MONOCYTES # (AUTO) 0.7 10^3/uL (0.0-1.0); MONOCYTES % (AUTO) 2 % (0-12); NEUTROPHILS # (AUTO) 28.9 10^3/uL (1.8-7.8); NEUTROPHILS % (AUTO) 88 % (42-75); PLATELET COUNT 293 10^3/uL (130-400)
[2021-10-07 20:18] LABS: FIBRIN DEGRADATION PRODUCTS 2.34 UG/ML (0.00-0.49); INR 1.2 (0.8-1.4)
[2021-10-07 20:19] LABS: ERYTHROCYTE SEDIMENTATION RATE 32 MM/HR (0-15)
[2021-10-07 20:26] LABS: BAND NEUTROPHILS 2 %; LYMPHOCYTES % (MANUAL) 5 %; MONOCYTES % (MANUAL) 4 %; NEUTROPHILS % (MANUAL) 89 %
[2021-10-07 20:27] LABS: ACANTHOCYTES MARKED; ALANINE AMINOTRANSFERASE 16 U/L (0-55); ALBUMIN 2.9 GM/DL (3.2-4.5); ALKALINE PHOSPHATASE 77 U/L (40-136); BILIRUBIN,TOTAL 3.6 MG/DL (0.1-1.0); BUN/CREATININE RATIO 12; CALCIUM 8.2 MG/DL (8.5-10.1); CARBON DIOXIDE 17 MMOL/L (21-32); CHLORIDE 100 MMOL/L (98-107); CREATINE KINASE 71 U/L (30-200); CREATININE SERUM 1.22 MG/DL (0.60-1.30); ELLIPT/OVALOCYTES MODERATE; GFR ESTIMATED 74; GLUCOSE 117 MG/DL (70-105); POLYCHROMASIA MODERATE; POTASSIUM 3.6 MMOL/L (3.6-5.0); SODIUM 132 MMOL/L (135-145); TOTAL PROTEIN 7.4 GM/DL (6.4-8.2)
--- NOTE | 2021-10-07 20:29 | Diagnostic Imaging Report ---
INDICATION: Shortness of breath. EXAMINATION: Portable chest at 7:57 PM. There is infiltrate present at the right lung base consistent with pneumonia. Heart size and pulmonary vascularity are normal. IMPRESSION: Right basilar pneumonia. Dictated by: Dictated on workstation # [id number]
[2021-10-07] MEDS ORDERED: IOHEXOL 350 MG/ML 100 ML (OMNIPAQUE 350) VIAL IV ONE (20:30)
[2021-10-07] MEDS ORDERED: HOLD METFORMIN - RECEIVED CONTRAST 20 ML VIAL IV SCH (20:30)
[2021-10-07] MEDS ORDERED: NS 100 ML (IVPB) BAG IV ONE (20:30)
[2021-10-07] MEDS: RT--FLUTICASONE/SALMETEROL 232-14 (AIRDUO RespiCLICK) IH SCH (20:32)
[2021-10-07 20:42] LABS: CREATINE KINASE MB 1.3 NG/ML (<6.6)
--- NOTE | 2021-10-07 21:06 | Diagnostic Imaging Report ---
PROCEDURE: CT angiography of the chest with contrast. TECHNIQUE: Multiple contiguous axial images were obtained through the chest after uneventful bolus administration of intravenous contrast. 3D reconstructed CTA MIP acquisitions were also performed. Auto Exposure Controls were utilized during the CT exam to meet ALARA standards for radiation dose reduction. INDICATION: Shortness of breath. FINDINGS: There is a large consolidation in the right lower lung consistent with pneumonia. There are no pulmonary emboli detected but there is suboptimal opacification with some respiratory motion artifact. There is no right ventricular strain. There are no effusions or pneumothoraces. There are a few enlarged right hilar lymph nodes as well as a few prominent mediastinal lymph nodes. There are no endobronchial lesions. IMPRESSION: Large right lower lobe pneumonia. No appreciable pulmonary embolic disease. Dictated by: Dictated on workstation # [id number]
[2021-10-07 21:26] LABS: CLARITY,URINE CLEAR; COLOR,URINE ORANGE; GLUCOSE, URINE (UA) TRACE (NEGATIVE); KETONES,URINE TRACE (NEGATIVE); LEUKOCYTE ESTERASE ,URINE NEGATIVE (NEGATIVE); NITRITE,URINE POSITIVE (NEGATIVE); PROTEIN,URINE 1+ (NEGATIVE)
[2021-10-07] MEDS: MAGNESIUM 1 GM/100 ML IVPB 100 ML IV SCH ×2 (21:29→22:11)
[2021-10-07] MEDS ORDERED: LACTATED RINGERS 1,000 ML IV ONE (21:30)
[2021-10-07 21:35] LABS: BACTERIA,URINE NEGATIVE /HPF; SQUAMOUS EPITHELIAL CELL,UR 0-2 /HPF
[2021-10-07 22:10] LABS: AMPHETAMINE SCREEN, URINE POSITIVE (NEGATIVE); BARBITURATE SCREEN URINE NEGATIVE (NEGATIVE); BENZODIAZEPINES SCREEN URINE NEGATIVE (NEGATIVE); CANNABINOID SCREEN, URINE NEGATIVE (NEGATIVE); COCAINE SCREEN URINE NEGATIVE (NEGATIVE); METHADONE STAT NEGATIVE (NEGATIVE); OPIATE SCREEN URINE NEGATIVE (NEGATIVE); OXYCODONE STAT NEGATIVE (NEGATIVE); PROPOXYPHENE STAT NEGATIVE (NEGATIVE); TRICYCLIC ANTIDEPRESSANTS SCRE NEGATIVE (NEGATIVE)
[2021-10-07] MEDS ORDERED: MAGNESIUM 1 GM/100 ML IVPB 200 ML IV ONE (23:25)
[2021-10-07] MEDS ORDERED: NS IV 1000 ML 1,000 ML ONE (23:38)
--- NOTE | 2021-10-07 23:47 | Tele-ICU Progress Note ---
Progress Note 45 y/o male with Hx of substance abuse disorder, Hep C, HTN presented with SOB, subjective fevers, sick for 1 day , cough and yellow sputum. Elevated WBC 33, LA 2.8 and elevated Procal. CXR with RLL consolidation. Pt viewed on camera, VSS and Pt is not in any acute distress. 1. Acute hypoxic resp failure 2/2 PNA O2 per N/C. No increased WOB 2. Pneumonia CAP POA, RLL , COVID and Influenza negative, 3.Sepsis 2/2 PNA received 30ml/kg IVF, Abx, c/s blood and sputum LA improved. 4. Nicotine dependence and substance abuse disorder. DVT PPx AM labs ordered. Interventions Minor-Other: Sepsis , PNA Electronically Focused Exam Lactate Level 10/07/21 19:45: Lactic Acid Level 2.87*H 10/07/21 21:55: Lactic Acid Level 1.93 Height, Weight, BMI Height: 6'5.00" Weight: 285lbs. 3.2oz. 129.475374ej; 35.00 BMI Method:Stated Lactic Acid Level Laboratory Tests Test 10/07/21 21:55 Lactic Acid Level 1.93 MMOL/L (0.50-2.00) SHEYLA CRANE MD Oct 07, 2021 23:47
[2021-10-08] MEDS ORDERED: ONDANSETRON 4 MG/2 ML (SDV) Z0FRAN IV PRN (00:15)
[2021-10-08] MEDS ORDERED: IBUPROFEN 800 MG (MOTRIN) TAB PO PRN (00:15)
[2021-10-08] MEDS ORDERED: EPINEPHrine 1 MG INJECTION 4 MG in NS (IVPB) 248 ML IV SCH (00:15)
[2021-10-08] MEDS: MAGNESIUM 1 GM/100 ML IVPB 100 ML IV SCH ×2 (00:28→00:30)
[2021-10-08] MEDS: NOREPINEPHRINE 8 MG/250 ML 250 ML IV SCH ×4 (00:28→21:14)
[2021-10-08] MEDS: LACTATED RINGERS 1,000 ML IV SCH ×5 (00:29→08:15)
[2021-10-08] MEDS: VASOPRESSIN INJECTION 20 UNIT in NS (IVPB) 100 ML IV SCH ×3 (00:29→21:14)
[2021-10-08 00:47] VITALS: BP 143/96
[2021-10-08] MEDS ORDERED: RT-ALBUTEROL/IPRATROPIUM 3 ML (DUONEB) VIAL INH PRN (01:15)
[2021-10-08] MEDS: RT-ALBUTEROL/IPRATROPIUM 3 ML (DUONEB) VIAL INH SCH ×4 (01:31→20:31)
[2021-10-08 04:29] LABS: BASOPHILS % (AUTO) 0 % (0-10); EOSINOPHILS # (AUTO) 0.1 10^3/uL (0.0-0.3); EOSINOPHILS % (AUTO) 0 % (0-10); HEMATOCRIT 46 % (40-54); HEMOGLOBIN 15.4 g/dL (13.3-17.7); LYMPHOCYTES % (AUTO) 3 % (12-44); MEAN CORPUSCULAR HEMOGLOBIN 31 pg (25-34); MEAN CORPUSCULAR HGB CONC 34 g/dL (32-36); MEAN CORPUSCULAR VOLUME 92 fL (80-99); MEAN PLATELET VOLUME 10.2 fL (9.0-12.2); MONOCYTES # (AUTO) 0.6 10^3/uL (0.0-1.0); MONOCYTES % (AUTO) 1 % (0-12); NEUTROPHILS # (AUTO) 36.7 10^3/uL (1.8-7.8); NEUTROPHILS % (AUTO) 91 % (42-75); PLATELET COUNT 292 10^3/uL (130-400)
[2021-10-08 04:36] LABS: WHITE BLOOD COUNT 40.6 10^3/uL (4.3-11.0)
[2021-10-08 04:38] LABS: ALBUMIN 2.7 GM/DL (3.2-4.5)
[2021-10-08 04:39] LABS: POTASSIUM 3.8 MMOL/L (3.6-5.0)
[2021-10-08 04:40] LABS: CALCIUM 8.3 MG/DL (8.5-10.1)
[2021-10-08 04:41] LABS: TOTAL PROTEIN 6.8 GM/DL (6.4-8.2)
[2021-10-08 04:43] LABS: BILIRUBIN,TOTAL 2.1 MG/DL (0.1-1.0)
[2021-10-08 04:44] LABS: PHOSPHORUS 1.5 MG/DL (2.3-4.7)
[2021-10-08 04:45] LABS: CREATININE SERUM 0.9 MG/DL (0.60-1.30)
[2021-10-08 04:47] LABS: MAGNESIUM 2.1 MG/DL (1.6-2.4)
[2021-10-08] MEDS: RT--FLUTICASONE/SALMETEROL 232-14 (AIRDUO RespiCLICK) IH SCH ×2 (07:49→20:31)
[2021-10-08 08:02] LABS: BILIRUBIN,URINE 1+ (NEGATIVE)
[2021-10-08] MEDS: POT PHOS/NA PHOS (K-PHOS NEUTRAL) PO SCH ×2 (09:47→20:44)
--- NOTE | 2021-10-08 10:18 | Tele-ICU Progress Note ---
Subjective Date Seen by a Provider: Oct 08, 2021 Subjective/Events-last exam (Tele-ICU Physician , Progress Note ) Available chart/ vitals / labs / Images reviewed Video assessment done using teleICU camera, rest of exam as per RN Discussed with RN , EXAM PER RN Events overnight : Afebrile FiO2 - 3 l I/O = = Drips: lr 150 Pressors: , hemodynamically stable Consultants: Hospital course: (10/07) 45/M- Hypoxic, cough, + amphet. bipap/optiflow, iv abiox. A/P Acute hypoxic resp failure / PNA 9 CT - no PE ) -O2 per N/C. Pneumonia CAP POA, RLL - COVID and Influenza negative - cont ABX - very dence infiltrate - consider anaerobic coverage if wsuspicios for aspiration / unresponsive ect Sepsis 06/06 PNA -received 30ml/kg IVF, Abx, c/s blood and sputum -LA improved Steroids started on admission - as per PCP exam - decrease / off is no br-spam Nicotine dependence and substance abuse disorder. Lines : (Central Line Necessity Reviewed) Snow: OG: Nutrition: po Analgesia: Anxiety/ delirium VTE Prophylaxis: hep sq Stress Ulcer Prophylaxis: start h2 bl of contionue on steroids Plans in collaboration with bedside consultants and IM MDs. Discussed with RN to reach out if any questions or concerns A total of 32 minutes of critical care time was devoted to this patient today, required to treat and/or prevent further deterioration of critical care condition ( as above) . Sepsis Event Evaluation Height, Weight, BMI Height: 6'5.00" Weight: 285lbs. 3.2oz. 129.542092xs; 35.61 BMI Method:Stated Focused Exam Lactate Level 10/07/21 19:45: Lactic Acid Level 2.87*H 10/07/21 21:55: Lactic Acid Level 1.93 Exam Exam Patient acknowledged, consented, and participated in this virtual visit which was conducted using real time audio/video Vital Signs Date Time Temp Pulse Resp B/P (MAP) Pulse Ox O2 Delivery O2 Flow Rate FiO2 10/08/21 09:00 118 19 144/98 95 Nasal Cannula 3.00 10/08/21 08:00 36.9 10/08/21 08:00 120 31 118/78 93 Nasal Cannula 3.00 10/08/21 08:00 93 Nasal Cannula 3.00 10/08/21 07:52 96 Nasal Cannula 3.00 10/08/21 07:17 120 10/08/21 07:00 105 22 152/101 91 Nasal Cannula 3.00 10/08/21 06:00 105 23 117/88 95 Nasal Cannula 3.00 10/08/21 05:00 108 24 139/100 94 Nasal Cannula 3.00 10/08/21 04:00 108 12 144/105 94 Nasal Cannula 3.00 10/08/21 03:10 36.9 Nasal Cannula 3.00 10/08/21 03:05 91 Nasal Cannula 3.00 10/08/21 03:00 104 12 149/103 94 Nasal Cannula 3.00 10/08/21 02:00 109 24 155/101 91 Nasal Cannula 3.00 10/08/21 01:32 94 Nasal Cannula 3.00 10/08/21 01:00 105 10/08/21 01:00 105 25 133/91 93 Nasal Cannula 3.00 10/08/21 00:47 37.2 134 96 10/08/21 00:45 105 21 143/95 95 Nasal Cannula 3.00 10/08/21 00:30 101 18 143/99 94 Nasal Cannula 3.00 10/08/21 00:15 113 28 147/113 93 Nasal Cannula 3.00 10/08/21 00:00 110 31 139/97 95 Nasal Cannula 3.00 10/08/21 00:00 Nasal Cannula 3.00 10/07/21 23:45 124 19 137/92 93 Nasal Cannula 3.00 10/07/21 23:30 101 23 144/100 94 Nasal Cannula 3.00 10/07/21 23:20 110 10/07/21 23:19 36.1 107 22 143/94 95 Nasal Cannula 3.00 10/07/21 20:24 37.4 10/07/21 19:31 37.2 134 26 143/96 (112) 94 Nasal Cannula I & O 10/08/21 07:00 Intake Total 5550 ml Output Total 4150 ml Balance 1400 ml Height & Weight Height: 6'00" Weight: 285lbs. 3.2oz. 129.397861cd; 35.61 BMI Method:Stated General Appearance: No Apparent Distress Capillary Refill: Less Than 3 Seconds Results Lab Laboratory Tests 10/07/21 19:45 10/08/21 04:17 Assessment/Plan Assessment/Plan ` GALINA LO MD Oct 08, 2021 10:18
[2021-10-08] MEDS ORDERED: meTOprolol 5 MG/5 ML (LOPRESSOR) VIAL IV NR (17:00)
[2021-10-08] MEDS: AZITHROMYCIN 500 MG/NS 250 ML IVPB IV SCH ×2 (20:44)
[2021-10-08] MEDS: cefTRIAXone 1 GM/50 ML (PRE-MIX) IV SCH (20:44)
--- NOTE | 2021-10-08 22:39 | History & Physical ---
HPI History of Present Illness: 45 yo M that presented with increasing shortness of breath since friday. States that he started to feel sick with cough on Friday and then over the weekend continued to get more short of breath. Denies home oxygen need. States that his roommate had a cough over the weekend but has bad allergies. Denies any fevers or chills. patient has been eating and drinking normally. He states that he has been taking all his medications but denies having any breathing treatments at home. Source: patient Exam Limitations: no limitations Date seen by provider: Oct 08, 2021 Time Seen by Provider: 17:00 Attending Physician Gela,Local Physician PCP Admitting Physician: Ever Woodward MD Attending Physician: Ever Woodward MD Consult Date of Admission Oct 07, 2021 at 20:32 Home Medications Home Medications Reviewed patient Home Medication Reconciliation performed by pharmacy medication reconciliations arcade technician and/or nursing. Patients Allergies have been reviewed. Allergies Coded Allergies: Sulfa (Sulfonamide Antibiotics) (Verified Allergy, Unknown, 09/10/18) XXF-Glypyu-Enwxcy Hx Patient Social History Drug of Choice: METH Smoking Status: Current Everyday Smoker Recent Hopitalizations: No Alcohol Use?: Yes Substance type: Amphetamines, Methamphetamine Tobacco type used: Cigarettes Have you traveled recently?: No Immunizations Up To Date Influenza Vaccine Up-to-Date: Yes; Up-to-Date First/Initial COVID19 Vaccinat: 2020 Second COVID19 Vaccination Lawson: 2020 Third COVID19 Vaccination Date: 06/2021 Past Medical History HTN Chronic Hep C, No previous treatment Tobacco Abuse Family Medical History Significant Family History: No Pertinent Family Hx Other Significan Family Hx: STRESS TEST 05/19/20 -- CONCLUSIONS: 1. No evidence of any significant myocardial ischemia or infarction. 2. Normal regional wall motion. 3. Normal global left ventricular systolic function with an ejection fraction of 57%. 4. Mild cardiomegaly. Family History: Arthritis 19 MOTHER Cardiovascular disease 19 MOTHER Degenerative disc disease 19 MOTHER Gout 19 MOTHER Testicular cancer 19 FATHER Review of Systems ([facility]) Constitutional: malaise, weakness EENTM: throat pain Respiratory: cough, short of breath Cardiovascular: no symptoms reported Gastrointestinal: no symptoms reported Genitourinary: no symptoms reported Musculoskeletal: no symptoms reported Skin: no symptoms reported Psychiatric/Neurological: No Symptoms Reported Reviewed Test Results Reviewed Test Results Lab Laboratory Tests Test 10/08/21 04:17 Range/Units White Blood Count 40.6 *H 4.3-11.0 10^3/uL Red Blood Count 4.96 4.30-5.52 10^6/uL Hemoglobin 15.4 13.3-17.7 g/dL Hematocrit 46 40-54 % Mean Corpuscular Volume 92 80-99 fL Mean Corpuscular Hemoglobin 31 25-34 pg Mean Corpuscular Hemoglobin Concent 34 32-36 g/dL Red Cell Distribution Width 15.7 H 10.0-14.5 % Platelet Count 292 130-400 10^3/uL Mean Platelet Volume 10.2 9.0-12.2 fL Immature Granulocyte % (Auto) 5 % Neutrophils (%) (Auto) 91 H 42-75 % Lymphocytes (%) (Auto) 3 L 12-44 % Monocytes (%) (Auto) 1 0-12 % Eosinophils (%) (Auto) 0 0-10 % Basophils (%) (Auto) 0 0-10 % Neutrophils # (Auto) 36.7 H 1.8-7.8 10^3/uL Lymphocytes # (Auto) 1.0 1.0-4.0 10^3/uL Monocytes # (Auto) 0.6 0.0-1.0 10^3/uL Eosinophils # (Auto) 0.1 0.0-0.3 10^3/uL Basophils # (Auto) 0.0 0.0-0.1 10^3/uL Immature Granulocyte # (Auto) 2.2 H 0.0-0.1 10^3/uL Sodium Level 134 L 135-145 MMOL/L Potassium Level 3.8 3.6-5.0 MMOL/L Chloride Level 107 98-107 MMOL/L Carbon Dioxide Level 19 L 21-32 MMOL/L Anion Gap 8 5-14 MMOL/L Blood Urea Nitrogen 15 7-18 MG/DL Creatinine 0.90 0.60-1.30 MG/DL Estimat Glomerular Filtration Rate 106 BUN/Creatinine Ratio 17 Glucose Level 198 H 70-105 MG/DL Calcium Level 8.3 L 8.5-10.1 MG/DL Corrected Calcium 9.3 8.5-10.1 MG/DL Phosphorus Level 1.5 L 2.3-4.7 MG/DL Magnesium Level 2.1 1.6-2.4 MG/DL Total Bilirubin 2.1 H 0.1-1.0 MG/DL Aspartate Amino Transf (AST/SGOT) 19 5-34 U/L Alanine Aminotransferase (ALT/SGPT) 15 0-55 U/L Alkaline Phosphatase 77 40-136 U/L Total Protein 6.8 6.4-8.2 GM/DL Albumin 2.7 L 3.2-4.5 GM/DL Physical Exam-([facility]) Physical Exam Vital Signs VS - Last 72 Hours, by Label 10/07/21 10/07/21 10/07/21 10/07/21 19:31 20:24 23:19 23:20 Temp 37.2 37.4 36.1 Pulse 134 107 110 Resp 22 B/P (MAP) 143/96 (112) 143/94 Pulse Ox 94 95 O2 Delivery Nasal Cannula Nasal Cannula O2 Flow Rate 3.00 10/07/21 10/07/21 10/08/21 10/08/21 23:30 23:45 00:00 00:00 Pulse 101 124 110 Resp 31 B/P (MAP) 144/100 137/92 139/97 Pulse Ox 94 93 95 O2 Delivery Nasal Cannula Nasal Cannula Nasal Cannula Nasal Cannula O2 Flow Rate 3.00 3.00 3.00 3.00 10/08/21 10/08/21 10/08/21 10/08/21 00:15 00:30 00:45 00:47 Temp 37.2 Pulse 113 101 105 134 Resp 28 18 21 B/P (MAP) 147/113 143/99 143/95 Pulse Ox 93 94 95 96 O2 Delivery Nasal Cannula Nasal Cannula Nasal Cannula O2 Flow Rate 3.00 3.00 3.00 10/08/21 10/08/21 10/08/21 10/08/21 01:00 01:00 01:32 02:00 Pulse 105 105 109 Resp 24 B/P (MAP) 133/91 155/101 Pulse Ox 93 94 91 O2 Delivery Nasal Cannula Nasal Cannula Nasal Cannula O2 Flow Rate 3.00 3.00 3.00 10/08/21 10/08/21 10/08/21 10/08/21 03:00 03:05 03:10 04:00 Temp 36.9 Pulse 104 108 Resp 12 12 B/P (MAP) 149/103 144/105 Pulse Ox 94 91 94 O2 Delivery Nasal Cannula Nasal Cannula Nasal Cannula Nasal Cannula O2 Flow Rate 3.00 3.00 3.00 3.00 10/08/21 10/08/21 10/08/21 10/08/21 05:00 06:00 07:00 07:17 Pulse 108 105 105 120 Resp B/P (MAP) 139/100 117/88 152/101 Pulse Ox 94 95 91 O2 Delivery Nasal Cannula Nasal Cannula Nasal Cannula O2 Flow Rate 3.00 3.00 3.00 10/08/21 10/08/21 10/08/21 10/08/21 07:52 08:00 08:00 08:00 Temp 36.9 Pulse 120 Resp 31 B/P (MAP) 118/78 Pulse Ox 96 93 93 O2 Delivery Nasal Cannula Nasal Cannula Nasal Cannula O2 Flow Rate 3.00 3.00 3.00 10/08/21 10/08/21 10/08/21 10/08/21 09:00 10:00 11:00 12:00 Pulse 118 115 125 118 Resp B/P (MAP) 144/98 138/96 153/94 144/85 Pulse Ox 95 93 95 91 O2 Delivery Nasal Cannula Nasal Cannula Nasal Cannula Nasal Cannula O2 Flow Rate 3.00 3.00 3.00 3.00 10/08/21 10/08/21 10/08/21 10/08/21 12:00 13:00 13:19 14:00 Pulse 126 129 123 Resp 18 B/P (MAP) 140/87 130/78 Pulse Ox 94 94 94 O2 Delivery Nasal Cannula Nasal Cannula Nasal Cannula O2 Flow Rate 3.00 3.00 3.00 10/08/21 10/08/21 10/08/21 10/08/21 14:34 15:00 16:00 16:00 Temp 36.9 Pulse 128 128 Resp 27 11 B/P (MAP) 129/89 148/102 Pulse Ox 93 96 93 O2 Delivery Nasal Cannula Nasal Cannula Nasal Cannula O2 Flow Rate 3.00 3.00 3.00 10/08/21 10/08/21 10/08/21 10/08/21 16:00 17:00 18:00 19:00 Pulse 122 122 112 Resp 30 11 B/P (MAP) 143/107 148/102 Pulse Ox 95 96 96 O2 Delivery Nasal Cannula Nasal Cannula Nasal Cannula O2 Flow Rate 3.00 3.00 3.00 10/08/21 10/08/21 10/08/21 10/08/21 19:00 19:25 19:32 20:31 Temp 36.8 36.8 Pulse 112 Resp 26 B/P (MAP) 138/92 Pulse Ox 96 96 95 O2 Delivery Nasal Cannula Nasal Cannula High Flow N/C O2 Flow Rate 3.00 3.00 3.00 Capillary Refill : Less Than 3 Seconds General Appearance: mild distress (with activity and conversational dyspnea) HEENT: PERRL/EOMI Neck: non-tender, full range of motion, supple Respiratory: crackles, wheezing, expiration, inspiration Cardiovascular: normal peripheral pulses, regular rate, rhythm, no edema, no murmur Gastrointestinal: normal bowel sounds, non tender, soft Back: no CVA tenderness, no vertebral tenderness Extremities: normal range of motion, non-tender, no calf tenderness, pedal edema (2+) Neurologic/Psychiatric: nurse practical II-XII nml as tested, no motor/sensory deficits, alert, normal mood/affect, oriented x 3 Assessment/Plan Assessment/Plan Admission Status: Inpatient Order (span 2 midnights) Reason for Inpatient Admission: Patient requiring increasing oxygen and needs ICU care (1) Severe sepsis Status: Acute Assessment & Plan: - Received fluid sepsis protocol, started on IV antibiotics, LA resolved, HDS (2) Acute respiratory failure Status: Acute Assessment & Plan: - Will continue to titrate oxygen as tolerated Qualifiers: Qualified Codes: J96.01 - Acute respiratory failure with hypoxia (3) RLL pneumonia Status: Acute Qualifiers: Qualified Codes: J18.9 - Pneumonia, unspecified organism (4) HTN (hypertension) Status: Chronic Assessment & Plan: - Will continue to hold blood pressure medications due to severe sepsis Qualifiers: Qualified Codes: I10 - Essential (primary) hypertension (5) Hypomagnesemia Status: Acute Assessment & Plan: - replaced, will repeat level in AM (6) Chronic hepatitis C Status: Chronic (7) Methamphetamine abuse Status: Chronic (8) DVT prophylaxis Status: Acute Assessment & Plan: - LISE Alex MD Oct 08, 2021 22:39
[2021-10-09] MEDS: RT-ALBUTEROL/IPRATROPIUM 3 ML (DUONEB) VIAL INH SCH ×4 (03:10→21:20)
[2021-10-09] MEDS ORDERED: LABETALOL HCL 20 MG/4 ML VIAL ONE (03:18)
[2021-10-09] MEDS: ACETAMINOPHEN 500 MG TAB (TYLENOL) PO PRN ×2 (03:22→16:52)
[2021-10-09] MEDS: LABETALOL HCL 20 MG/4 ML VIAL IV PRN ×3 (03:23→21:32)
[2021-10-09 04:56] LABS: BASOPHILS # (AUTO) 0.1 10^3/uL (0.0-0.1); BASOPHILS % (AUTO) 0 % (0-10); EOSINOPHILS # (AUTO) 0.2 10^3/uL (0.0-0.3); EOSINOPHILS % (AUTO) 1 % (0-10); HEMATOCRIT 41 % (40-54); HEMOGLOBIN 13.9 g/dL (13.3-17.7); LYMPHOCYTES # (AUTO) 0.9 10^3/uL (1.0-4.0); LYMPHOCYTES % (AUTO) 3 % (12-44); MEAN CORPUSCULAR HEMOGLOBIN 31 pg (25-34); MEAN CORPUSCULAR HGB CONC 34 g/dL (32-36); MEAN CORPUSCULAR VOLUME 92 fL (80-99); MEAN PLATELET VOLUME 10.6 fL (9.0-12.2); MONOCYTES # (AUTO) 0.8 10^3/uL (0.0-1.0); MONOCYTES % (AUTO) 3 % (0-12); NEUTROPHILS # (AUTO) 31.2 10^3/uL (1.8-7.8); NEUTROPHILS % (AUTO) 92 % (42-75); PLATELET COUNT 284 10^3/uL (130-400)
[2021-10-09 05:03] LABS: WHITE BLOOD COUNT 33.8 10^3/uL (4.3-11.0)
[2021-10-09 05:06] LABS: ALBUMIN 2.6 GM/DL (3.2-4.5)
[2021-10-09 05:07] LABS: POTASSIUM 3.4 MMOL/L (3.6-5.0)
[2021-10-09 05:09] LABS: TOTAL PROTEIN 6.6 GM/DL (6.4-8.2)
[2021-10-09 05:11] LABS: BILIRUBIN,TOTAL 0.7 MG/DL (0.1-1.0)
[2021-10-09 05:12] LABS: PHOSPHORUS 2.1 MG/DL (2.3-4.7)
[2021-10-09 05:13] LABS: CREATININE SERUM 0.83 MG/DL (0.60-1.30)
[2021-10-09 05:15] LABS: MAGNESIUM 1.9 MG/DL (1.6-2.4)
[2021-10-09] MEDS ORDERED: inSUlin ASPART (NovoLOG) 1 UNIT/0.01 ML (CHARGE PER UNIT) ONE (05:27)
[2021-10-09] MEDS: inSUlin ASPART (NovoLOG) 1 UNIT/0.01 ML (CHARGE PER UNIT) SQ SCH ×4 (05:29→21:32)
[2021-10-09] MEDS ORDERED: KCL 20 MEQ TAB (K-DUR) PO SCH ×2 (06:00→08:00)
[2021-10-09] MEDS ORDERED: POTASSIUM CL 10MEQ/50ML IVPB 50 ML IV SCH (06:00)
[2021-10-09] MEDS ORDERED: MAGNESIUM 1 GM/100 ML IVPB 100 ML IV SCH (06:00)
[2021-10-09] MEDS: RT--FLUTICASONE/SALMETEROL 232-14 (AIRDUO RespiCLICK) IH SCH ×2 (07:06→21:20)
[2021-10-09] MEDS ORDERED: KCL 20 MEQ TAB (K-DUR) PO ONE (08:00)
[2021-10-09] MEDS: POT PHOS/NA PHOS (K-PHOS NEUTRAL) PO SCH (09:23)
[2021-10-09] MEDS: VASOPRESSIN INJECTION 20 UNIT in NS (IVPB) 100 ML IV SCH (09:36)
[2021-10-09] MEDS ORDERED: LISI1TAB46 PO (09:46)
[2021-10-09] MEDS ORDERED: FURO20TA4 PO (09:46)
[2021-10-09] MEDS ORDERED: AMLO10TA4 PO (09:46)
[2021-10-09] MEDS ORDERED: METO200T48 PO (09:47)
[2021-10-09 09:52] VITALS: BP 143/89
--- NOTE | 2021-10-09 11:20 | Tele-ICU Progress Note ---
Subjective Date Seen by a Provider: Oct 09, 2021 Time Seen by a Provider: 11:20 Subjective/Events-last exam (Tele-ICU Physician , Progress Note ) Available chart/ vitals / labs / Images reviewed Video assessment done using teleICU camera, rest of exam as per RN Discussed with RN , EXAM PER RN Events overnight : Afebrile FiO2 - 3 l I/O = neg Drips: Pressors: , hemodynamically stable Consultants: Hospital course: (10/07) 45/M- Hypoxic, cough, + amphet. bipap/optiflow, iv abiox. A/P Acute hypoxic resp failure 06/[address] - no PE ) -O2 per N/C. Pneumonia CAP POA, RLL - COVID and Influenza negative - cont ABX - bacteremia strep Pneumo - very dense infiltrate - consider anaerobic coverage if wsuspicios for aspiration / unresponsive ect Sepsis 06/06 PNA -resolved Steroids started on admission - as per PCP exam - decrease / off is no br-spam Nicotine dependence and substance abuse disorder. Lines : (Central Line Necessity Reviewed) Snow: OG: Nutrition: po Analgesia: Anxiety/ delirium VTE Prophylaxis: hep sq Stress Ulcer Prophylaxis: start h2 bl of contionue on steroids Plans in collaboration with bedside consultants and IM MDs. Discussed with RN to reach out if any questions or concerns A total of 20 minutes of critical care time was devoted to this patient today, required to treat and/or prevent further deterioration of critical care conditi on ( as above) . Sepsis Event Evaluation Height, Weight, BMI Height: 6'5.00" Weight: 285lbs. 3.2oz. 129.054409yy; 37.14 BMI Method:Stated Focused Exam Lactate Level 10/07/21 19:45: Lactic Acid Level 2.87*H 10/07/21 21:55: Lactic Acid Level 1.93 Exam Exam Patient acknowledged, consented, and participated in this virtual visit which was conducted using real time audio/video Vital Signs Date Time Temp Pulse Resp B/P (MAP) Pulse Ox O2 Delivery O2 Flow Rate FiO2 10/09/21 11:00 112 95 Nasal Cannula 3.00 10/09/21 10:00 107 93 Nasal Cannula 3.00 10/09/21 09:52 37.3 110 94 10/09/21 09:36 110 143/89 10/09/21 09:00 110 35 143/89 94 Nasal Cannula 3.00 10/09/21 08:00 107 27 146/98 90 Nasal Cannula 3.00 10/09/21 08:00 37.3 10/09/21 07:06 94 High Flow N/C 3.00 10/09/21 07:00 112 25 161/105 94 Nasal Cannula 3.00 10/09/21 07:00 112 10/09/21 06:08 110 28 160/102 96 Nasal Cannula 3.00 10/09/21 05:00 106 27 162/100 94 Nasal Cannula 3.00 10/09/21 04:00 111 9 162/116 97 Nasal Cannula 3.00 10/09/21 03:49 36.9 10/09/21 03:25 95 Nasal Cannula 3.00 10/09/21 03:12 94 High Flow N/C 3.00 10/09/21 03:07 125 36 168/113 93 Nasal Cannula 3.00 10/09/21 02:00 117 25 166/112 96 Nasal Cannula 3.00 10/09/21 01:00 116 31 147/98 95 Nasal Cannula 3.00 10/09/21 01:00 116 10/09/21 00:00 115 37 149/98 91 Nasal Cannula 3.00 10/08/21 23:42 118 24 153/101 94 Nasal Cannula 3.00 10/08/21 23:37 37.2 10/08/21 23:30 95 Nasal Cannula 3.00 10/08/21 23:00 115 22 172/110 91 Nasal Cannula 3.00 10/08/21 22:00 120 25 151/92 95 Nasal Cannula 3.00 10/08/21 21:11 114 26 138/84 94 Nasal Cannula 3.00 10/08/21 21:00 118 12 167/126 93 Nasal Cannula 3.00 10/08/21 20:31 95 High Flow N/C 3.00 10/08/21 20:00 112 63 162/114 95 Nasal Cannula 3.00 10/08/21 19:32 36.8 10/08/21 19:25 96 Nasal Cannula 3.00 10/08/21 19:00 36.8 112 26 138/92 96 Nasal Cannula 3.00 10/08/21 19:00 112 10/08/21 18:00 122 11 148/102 96 Nasal Cannula 3.00 10/08/21 17:00 122 30 143/107 96 Nasal Cannula 3.00 10/08/21 16:00 95 Nasal Cannula 3.00 10/08/21 16:00 36.9 10/08/21 16:00 128 11 148/102 93 Nasal Cannula 3.00 10/08/21 15:00 128 27 129/89 96 Nasal Cannula 3.00 10/08/21 14:34 93 Nasal Cannula 3.00 10/08/21 14:00 123 18 130/78 94 Nasal Cannula 3.00 10/08/21 13:19 129 10/08/21 13:00 126 21 140/87 94 Nasal Cannula 3.00 10/08/21 12:00 94 Nasal Cannula 3.00 10/08/21 12:00 118 21 144/85 91 Nasal Cannula 3.00 I & O 10/09/21 07:00 Intake Total 5100 ml Output Total 5850 ml Balance -750 ml Height & Weight Height: 6'5.00" Weight: 285lbs. 3.2oz. 129.435185cm; 37.14 BMI Method:Stated General Appearance: No Apparent Distress Capillary Refill: Less Than 3 Seconds Gastrointestinal: normal bowel sounds, non tender, soft Results Lab Laboratory Tests 10/07/21 19:45 10/08/21 04:17 10/09/21 04:30 Assessment/Plan Assessment/Plan ` GALINA LO MD Oct 09, 2021 11:20
[2021-10-09 12:58] VITALS: BP 180/92
[2021-10-09 15:27] VITALS: BP 147/91
[2021-10-09 19:45] VITALS: BP 178/106
--- NOTE | 2021-10-09 20:14 | Progress Note ---
Subjective Subjective/Events-last exam Patient states that he is feeling better this AM. Sitting up in chair this AM. Tolerating PO diet. Review of Systems General: Malaise Pulmonary: Dyspnea, Cough Neurological: Weakness, Incoordination Focused Exam Lactate Level 10/07/21 19:45: Lactic Acid Level 2.87*H 10/07/21 21:55: Lactic Acid Level 1.93 Objective Exam Last Set of Vital Signs Vital Signs Date Time Temp Pulse Resp B/P (MAP) Pulse Ox O2 Delivery O2 Flow Rate FiO2 10/09/21 19:45 37.6 110 18 178/106 (130) 95 High Flow N/C 3.00 Capillary Refill : Less Than 3 Seconds I&O Intake and Output 10/08/21 23:59 Intake Total 5800 ml Output Total 6825 ml Balance -1025 ml Intake Oral 3300 ml IV Total 2500 ml Output Urine Total 6825 ml General: Alert, Oriented X3, Mild Distress (with minimal exertion) Lungs: Clear to Auscultation, Normal Air Movement Heart: Regular Rate, No Murmurs Abdomen: Normal Bowel Sounds, Soft, No Tenderness, No Masses Extremities: Other (2+ pitting edema equal bilaterally) Skin: Other (Large areas of healed old skin grafts on legs, thighs, and arms) Neuro: Normal Speech Results/Procedures Lab Laboratory Tests 10/09/21 04:30: White Blood Count 33.8*H, Red Blood Count 4.48, Hemoglobin 13.9, Hematocrit 41, Mean Corpuscular Volume 92, Mean Corpuscular Hemoglobin 31, Mean Corpuscular Hemoglobin Concent 34, Red Cell Distribution Width 15.5H, Platelet Count 284, Mean Platelet Volume 10.6, Immature Granulocyte % (Auto) 2, Neutrophils (%) (Auto) 92H, Lymphocytes (%) (Auto) 3L, Monocytes (%) (Auto) 3, Eosinophils (%) (Auto) 1, Basophils (%) (Auto) 0, Neutrophils # (Auto) 31.2H, Lymphocytes # (Auto) 0.9L, Monocytes # (Auto) 0.8, Eosinophils # (Auto) 0.2, Basophils # (Auto) 0.1, Immature Granulocyte # (Auto) 0.6H, Sodium Level 135, Potassium Level 3.4L, Chloride Level 104, Carbon Dioxide Level 20L, Anion Gap 11, Blood Urea Nitrogen 20H, Creatinine 0.83, Estimat Glomerular Filtration Rate 109, BUN/Creatinine Ratio 24, Glucose Level 284H, Calcium Level 8.0L, Corrected Calcium 9.1, Phosphorus Level 2.1L, Magnesium Level 1.9, Total Bilirubin 0.7, Aspartate Amino Transf (AST/SGOT) 20, Alanine Aminotransferase (ALT/SGPT) 15, Alkaline Phosphatase 92, Total Protein 6.6, Albumin 2.6L 10/09/21 11:37: Glucometer 203H 10/09/21 15:28: Glucometer 242H Microbiology 10/07/21 MRSA Screen - Final, Complete MRSA not isolated 10/07/21 Urine Culture - Final, Complete Gram Pos Mixed Bacterial Nannette 10/07/21 Blood Culture - Preliminary, Resulted Streptococcus pneumoniae Assessment/Plan Assessment/Plan (1) Severe sepsis Status: Resolved Assessment & Plan: - Received fluid sepsis protocol, started on IV antibiotics, LA resolved, HDS (2) Acute respiratory failure Status: Acute Assessment & Plan: - Will continue to titrate oxygen as tolerated 10/09: Continues to require oxygen, MAT protocol, will titrate as tolerated, starting PO steroids Qualifiers: Qualified Codes: J96.01 - Acute respiratory failure with hypoxia (3) RLL pneumonia Status: Acute Qualifiers: Qualified Codes: J18.9 - Pneumonia, unspecified organism (4) Bacteremia due to Streptococcus pneumoniae Status: Acute Assessment & Plan: 10/09: Continue IV antibiotics, will continue to trend leukocytosis (5) HTN (hypertension) Status: Chronic Assessment & Plan: - Will continue to hold blood pressure medications due to severe sepsis Qualifiers: Qualified Codes: I10 - Essential (primary) hypertension (6) Hypomagnesemia Status: Acute Assessment & Plan: - replaced, will repeat level in AM (7) Chronic hepatitis C Status: Chronic (8) Methamphetamine abuse Status: Chronic (9) DVT prophylaxis Status: Acute Assessment & Plan: - LISE Alex MD Oct 09, 2021 20:14
[2021-10-09] MEDS: AZITHROMYCIN 500 MG/NS 250 ML IVPB IV SCH ×2 (21:33)
[2021-10-09] MEDS: cefTRIAXone 1 GM/50 ML (PRE-MIX) IV SCH (21:34)
[2021-10-10] VITALS: BP 164/97
[2021-10-10] MEDS: ACETAMINOPHEN 500 MG TAB (TYLENOL) PO PRN ×2 (00:44→09:59)
[2021-10-10 04:07] VITALS: BP 141/80
[2021-10-10] MEDS: inSUlin ASPART (NovoLOG) 1 UNIT/0.01 ML (CHARGE PER UNIT) SQ SCH ×2 (05:36→11:27)
[2021-10-10 05:50] LABS: BASOPHILS # (AUTO) 0.1 10^3/uL (0.0-0.1); BASOPHILS % (AUTO) 0 % (0-10); EOSINOPHILS % (AUTO) 0 % (0-10); HEMATOCRIT 43 % (40-54); HEMOGLOBIN 14.1 g/dL (13.3-17.7); LYMPHOCYTES # (AUTO) 1.6 10^3/uL (1.0-4.0); LYMPHOCYTES % (AUTO) 6 % (12-44); MEAN CORPUSCULAR HEMOGLOBIN 31 pg (25-34); MEAN CORPUSCULAR HGB CONC 33 g/dL (32-36); MEAN CORPUSCULAR VOLUME 94 fL (80-99); MEAN PLATELET VOLUME 10.3 fL (9.0-12.2); MONOCYTES # (AUTO) 1.4 10^3/uL (0.0-1.0); MONOCYTES % (AUTO) 6 % (0-12); NEUTROPHILS # (AUTO) 21.4 10^3/uL (1.8-7.8); NEUTROPHILS % (AUTO) 86 % (42-75); PLATELET COUNT 239 10^3/uL (130-400); WHITE BLOOD COUNT 24.8 10^3/uL (4.3-11.0)
[2021-10-10 06:05] LABS: ALBUMIN 2.4 GM/DL (3.2-4.5); POTASSIUM 4.1 MMOL/L (3.6-5.0)
[2021-10-10 06:06] LABS: CALCIUM 7.9 MG/DL (8.5-10.1)
[2021-10-10 06:07] LABS: TOTAL PROTEIN 6.4 GM/DL (6.4-8.2)
[2021-10-10 06:09] LABS: BILIRUBIN,TOTAL 0.5 MG/DL (0.1-1.0)
[2021-10-10 06:11] LABS: CREATININE SERUM 0.9 MG/DL (0.60-1.30)
[2021-10-10] MEDS ORDERED: predniSONE 20 MG TAB PO SCH (07:00)
[2021-10-10 07:34] VITALS: BP 166/98
--- NOTE | 2021-10-10 08:25 | Diagnostic Imaging Report ---
Indication: Follow-up pneumonia. Comparison with 10/07/2021. FINDINGS: Dense consolidated infiltrate right lower lobe again noted. There has been some improvement in aeration since previous exam. Left lung is well-aerated and relatively clear. There is cardiomegaly. Pulmonary vasculature does appear slightly prominent. IMPRESSION: 1. Persistent alveolar consolidated infiltrate right lower lobe though there is some improvement in overall aeration. 2. Cardiomegaly with suggestion of mild pulmonary edema. Dictated by: Dictated on workstation # [id number]
[2021-10-10] MEDS: RT-ALBUTEROL/IPRATROPIUM 3 ML (DUONEB) VIAL INH SCH (08:45)
[2021-10-10] MEDS: RT--FLUTICASONE/SALMETEROL 232-14 (AIRDUO RespiCLICK) IH SCH (08:49)
[2021-10-10] MEDS ORDERED: meTOprolol SUCCINATE 100 MG (TOPROL XL) TAB PO SCH (09:00)
[2021-10-10] MEDS ORDERED: lisINopril 40 MG (PRINIVIL) TABLET PO SCH (09:00)
[2021-10-10] MEDS ORDERED: amLODIPine 10 MG (NORVASC) TAB PO SCH (09:00)
[2021-10-10 11:20] VITALS: BP 165/89
--- NOTE | 2021-10-10 12:31 | Discharge Summary ---
Diagnosis/Chief Complaint Date of Admission Oct 07, 2021 at 20:32 Date of Discharge 10/10/21 Admission Diagnosis Admission Diagnosis See problem list Discharge Diagnosis See below Problems/Diagnosis: (1) Severe sepsis Assessment & Plan: - Received fluid sepsis protocol, started on IV antibiotics, LA resolved, HDS Status: Resolved Resolution Date/Time: 10/09/21 @ 20:12 (2) Acute respiratory failure Assessment & Plan: - Will continue to titrate oxygen as tolerated 10/09: Continues to require oxygen, MAT protocol, will titrate as tolerated, starting PO steroids Qualifiers: Qualified Codes: J96.01 - Acute respiratory failure with hypoxia Status: Acute (3) RLL pneumonia Qualifiers: Qualified Codes: J18.9 - Pneumonia, unspecified organism Status: Acute (4) Bacteremia due to Streptococcus pneumoniae Assessment & Plan: 10/09: Continue IV antibiotics, will continue to trend leukocytosis Status: Acute (5) HTN (hypertension) Assessment & Plan: - Will continue to hold blood pressure medications due to severe sepsis Qualifiers: Qualified Codes: I10 - Essential (primary) hypertension Status: Chronic (6) Hypomagnesemia Assessment & Plan: - replaced, will repeat level in AM Status: Acute (7) Chronic hepatitis C Status: Chronic (8) Methamphetamine abuse Status: Chronic (9) DVT prophylaxis Assessment & Plan: - Lovenox Status: Acute Chief Complaint/HPI Chief Complaint/HPI 45 yo M that presented with increasing shortness of breath since friday. States that he started to feel sick with cough on Friday and then over the weekend continued to get more short of breath. Denies home oxygen need. States that his roommate had a cough over the weekend but has bad allergies. Denies any fevers or chills. patient has been eating and drinking normally. He states that he has been taking all his medications but denies having any breathing treatments at home. Discharge Summary-Simple/Stand Consultations Discharge Physical Examination Allergies: Coded Allergies: Sulfa (Sulfonamide Antibiotics) (Verified Allergy, Unknown, 09/10/18) Vitals & I&Os Vital Sign - Last 12Hours Date Time Temp Pulse Resp B/P (MAP) Pulse Ox O2 Delivery O2 Flow Rate FiO2 10/10/21 11:20 37.4 82 20 165/89 (114) 90 Room Air 10/10/21 08:50 3.00 Intake and Output 10/10/21 00:00 Intake Total 2430 ml Output Total 600 ml Balance 1830 ml General Appearance: Alert, Oriented X3, Cooperative, No Acute Distress Respiratory: Other (end exp wheezing, normal work of breathing on room air) Cardiovascular: Regular Rate, No Murmurs Abdominal: Normal Bowel Sounds, Soft, No Tenderness, No Masses Extremities: No Edema, No Tenderness/Swelling Neuro: Normal Speech, Cranial Nerves 3-12 NL Psych/Mental Status: Mental Status NL, Mood NL Hospital Course See final discharge diagnosis. Discharge Condition at discharge Stable Instructions to patient/family Please see electronic discharge instructions given to patient. Discharge Medications Reviewed and agree with Discharge Medication list on patient's Discharge Instruction sheet LISE FRANCIS MD Oct 10, 2021 12:31
[2021-10-10] MEDS ORDERED: AZIT250T12 PO (12:37)
[2021-10-10] MEDS ORDERED: PRD20T PO (12:37)
[2021-10-10] MEDS ORDERED: CEFD300C3 PO (12:37)
--- NOTE | 2021-10-10 12:37 | Discharge Summary ---
Discharge [facility] Reconcile Patient Problems Problems Reviewed?: Yes Discharge Medications New, Converted or Re-Newed RX: Transmitted to Pharmacy New Medications: Cefdinir (Cefdinir) 300 Mg Capsule 300 MG PO BID for 7 Days, #14 CAP Azithromycin (Azithromycin) 250 Mg Tablet 250 MG PO HS, #4 TAB Prednisone (Prednisone) 20 Mg Tab 50 MG PO DAILY@0700, #4 TAB Continued Medications: Amlodipine Besylate (Norvasc) 10 Mg Tablet 10 MG PO DAILY, TAB Furosemide (Furosemide) 20 Mg Tablet 20 MG PO DAILY, TAB Lisinopril/Hydrochlorothiazide (Lisinopril-Hctz 20-12.5 mg Tab) 20 Mg-12.5 Mg Tablet 2 EACH PO DAILY, TAB Metoprolol Succinate (Metoprolol Succinate) 200 Mg Tab.er.24h 200 MG PO DAILY, TAB Patient Instructions Goal/Follow Up Appt: [facility] P[facility] 1-2 weeks Patient Instructions: - Make sure to complete your antibiotics Activity & Diet Discharge Diet: Cardiac Diet Activity as Tolerated: Yes LISE FRANCIS MD Oct 10, 2021 12:37
[2021-10-10] MEDS ORDERED: AZITHROMYCIN 250 MG TAB (ZITHROMAX) PO SCH (21:00)
== END 2021-10-10 12:51 | disposition home or self-care (01) | DRG 871 ==
LOC: EDUNIT# 19:31 → ER 19:32 → ICU 20:32 → 4TH 10-09 12:25
PROVIDERS: ADMIT Internal Medicine; ATTEND Internal Medicine
DX: A40.3 Sepsis due to Streptococcus pneumoniae (principal); R65.20 Severe sepsis without septic shock; J13 Pneumonia due to Streptococcus pneumoniae; J96.01 Acute respiratory failure with hypoxia; B19.20 Unspecified viral hepatitis C without hepatic coma; E83.42 Hypomagnesemia; F17.210 Nicotine dependence, cigarettes, uncomplicated; I10 Essential (primary) hypertension; Z20.822 Contact with and (suspected) exposure to COVID-19; F15.10 Other stimulant abuse, uncomplicated; Z79.52 Long term (current) use of systemic steroids; Z88.2 Allergy status to sulfonamides
CPT/HCPCS: 36415; 71045; 71275; 80053; 80306; 80320; 81000; 82550; 82553; 82805; 82947; 83605; 83735; 83874; 83880; 84100; 84145; 84484; 85007; 85025; 85027; 85379; 85610; 85652; 85730; 86141; 87040; 87070; 87077; 87081; 87088; 87205; 87636; 93005; 94640; 94760; 99291